=== PATIENT | male | born 1940 | race Caucasian/White ===

== ENCOUNTER 2018-01-30 23:03 | Inpatient (IN) | payer MEDICARE ==
[2018-01-31] MEDS ORDERED: ACETAMINOPHEN 325 MG TAB PO PRN (04:00)
[2018-01-31] MEDS ORDERED: LORazepam 0.5 MG TAB age > 65 yrs PO PRN (04:00)
[2018-01-31] MEDS ORDERED: ALUMINUM/MAGNESIUM/SIMETH 30 ML CUP PO PRN (04:00)
[2018-01-31] MEDS ORDERED: LORazepam 2 MG/ML VIAL - age > 65 yrs IM PRN (04:00)
[2018-01-31] MEDS ORDERED: MAGNESIUM HYDROXIDE SUSP 30 ML CUP PO PRN ×2 (04:00→15:30)
[2018-01-31 06:00] VITALS: BP 137/64; PULSE 50; RESP 18; TEMP 97.6; O2SAT 98
--- NOTE | 2018-01-31 13:18 | HHI.HP ---
Provisional Diagnosis Admission Date Jan 31, 2018 at 01:30 [place] I. Major depressive disorder, recurrent, severe without psychotic features Certification of Person's Competence To Provide Express and Informed Consent I have personally examined Filiberto Veronica , a person being served at [facility] on, Jan 31, 2018 12:43. Express and informed consent means consent voluntarily given in writing, by a competent person, after sufficient explanation and disclosure of the subject matter involved to enable the person to make a knowing and willful decision without any element of force, fraud, deceit, duress, or other form of constraint or coercion. This person is 18 years of age or older, is not now known to be incompetent to consent to treatment with a guardian advocate, and does not have a health care surrogate or proxy currently making medical treatment decisions. I have found this person to be one of the following: [] Competent to provide express and informed consent, as defined above, for voluntary admission to this facility and is competent to provide express and informed consent for treatment. He/she has the consistent capacity to make well reasoned, willful, and knowing decisions concerning his or her medical or mental health treatment. The person fully and consistently understands the purpose of the admission for examination/placement and is fully capable of personally exercising all rights assured under [place]xxx] Incompetent to provide express and informed consent to voluntary admission , and this is incompetent to provide express and informed consent to treatment. The person must be transferred to involuntary status and a petition for a guardian advocate filed with the Circuit Court. [] Refusing to provide express and informed consent to voluntary admission but is competent to provide express and informed consent for treatment. The person must be discharged or transferred to involuntary status. Form shall be completed within 24 hours of a person's arrival at the receiving facility and filed in the clinical record of each person: 1. Admitted on a voluntary basis 2. Permitted to provide express and informed consent to his/her own treatment 3. Allowed to transfer from involuntary to voluntary status 4. Prior to permitting a person to consent to his or her own treatment after having been previously found incompetent to consent to treatment. History of Present Illness Capacity: Lacks Capacity HPI Patient is a 77-year-old man, recently since 6 months ago, domiciled with daughter, unemployed on Social Security benefits and intermediate benefits, with a past psychiatric history of depression, anxiety, unclear previous psychiatric admissions, multiple regular tracks, 3 previous suicide attempts, with a past medical history significant for atrial flutter, history of DVT, hypertension, CAD status post stent placement in 1999, who was brought under Diez act after being found by a nurse trying to place to hang around his neck in attempt to end his life in the context of recent artery with daughter which patient was admitted to the inpatient psychiatry for further evaluation and management. As per Diez act patient was found by nurse trying to place go ahead around his neck and having stated he wanted to end his life in the context of recent argument with daughter. Patient was found sitting in hospital bed noted, cooperative, alert and oriented only to person and year and not to place. Patient states "I put up" anger around my neck" but is unable to recall events prior to this event but did state he was trying to kill himself. Patient states that he is not having suicide ideations "ever since my " but states that has 3 reasons to live us for his children, his grandchildren for himself. Patient reports no changes sleep but did endorse decreased appetite, concentration, and energy along with feeling depressed but denies any suicide ideations today. Patient denies any perceptual disturbances or delusions. Patient noted with psychomotor retardation during interview and cognitive impairment. Past psychiatric history: Denies Past psychiatric history: Previous psychiatric diagnoses of depression and anxiety, unclear if previous psychiatric admissions, 2-4 prior Diez acts as per patient, 3 previous suicide attempts, no history of self-injurious behavior. Patient denies history of abuse. Substance use history: Alcohol use 1-2 glasses of wine per month denying any drug use. Past medical history: Atrial flutter, history of DVT, hypertension, [place] in 2000 status post stent placement. Allergies: Penicillin Social history: Recently 6 months ago, domiciled with daughter, unemployed on social security benefits and intermediate benefits. No history of service, no asked to firearms. Collateral from patient's daughter, Ayde Cancino, states that patient was found trying to put coat silk hanger around his neck, states that he wants to go see Laura (). Reports pt has tried in the past. She believes that the pt has no longer has reason to live. Family history of dementia. Review of Systems Except as stated in HPI: all other systems reviewed are Neg Past Psych History Psychological trauma history Denies Violence risk - others (6 mos) low Violence risk - self (6 mos) Elevated due to previous suicide attempt in the current Substance Abuse History Drugs/Alcohol past 12 months Alcohol use 1-2 glasses of wine per month denying any drug use. Past Family Social History Coded Allergies: Penicillins (Verified Allergy, Unknown, 01/31/18) Current Medications Medications (Trade) Dose Ordered Sig/Idania Route Start Time Stop Time Status Last Admin (Ativan) 0.5 mg Q12H PRN PO 01/31/18 04:00 Future Hold (Ativan Inj) 0.5 mg Q12H PRN IM 01/31/18 04:00 Future Hold (Tylenol) 650 mg Q4H PRN PO 01/31/18 04:00 (Milk Of Magnesia Liq) 30 ml DAILY PRN PO 01/31/18 04:00 (Mag-Al Plus Susp Liq) 30 ml Q6H PRN PO 01/31/18 04:00 Family Psych History Denies Social History Recently 6 months ago, domiciled with daughter, unemployed on social security benefits and intermediate benefits. No history of service, no asked to firearms. Patient's Strengths (min. 2) Verbal and communicative Physical Exam Patient not noted to be in acute distress, no gross motor abnormalities, no tremor or EPS, no psychomotor agitation but is noted to have noted psychomotor retardation. Vital Signs Vital Signs Date Time Temp Pulse Resp B/P (MAP) Pulse Ox O2 Delivery O2 Flow Rate FiO2 01/31/18 06:00 97.6 50 18 137/64 (88) 98 Mental Status Examination Appearance: Disheveled Consciousness: Alert Orientation: Person, Date/Time (Here only) Speech: Slow Language: Adequate Fund of Knowledge: Inadequate Attention and Concentration: Inadequate Memory: Impaired Mood: Other (Depressed) Affect: Blunt Thought Process & Associations: Other ([place]) Thought Content: Thought blocking Hallucination Type: None Delusion Type: None Suicidal Ideation: Yes Suicidal Plan: No Suicidal Intention: Yes Homicidal Ideation: No Homicidal Plan: No Homicidal Intention: No Insight: Poor Judgment: Poor Assessment & Plan Problem List: (1) Major depressive disorder, recurrent, severe w/o psychotic behavior ICD Codes: F33.2 - Major depressive disorder, recurrent severe without psychotic features Assessment & Plan Estimated LOS: 5-7 days. Patient is a 77-year-old man who carries a diagnosis of depression, unclear previous psychiatric admissions, previous Diez acts, 3 previous suicide attempts, was brought in under Diez act after patient placed "anger her neck in attempt to end his life in the context of recent argument with as well as his recently having past 6 months ago which patient was admitted to the inpatient psychiatry for psychiatric stabilization. Patient will be admitted under petition for involuntary hospitalization, second opinion will be requested. Patient's daughter, Ayde Veronica [phone], will be requested to be patient's healthcare surrogate and guardian advocate, contacted over the phone and consented to patient's treatment. Once can medications establish with patient's daughter has a GCS, will plan to start patient on venlafaxine 75 mg p.o. daily for depression, diphenhydramine 25-50 mg p.o. at bedtime as needed insomnia, Lorazepam 0.5 mg every 6 hours as needed anxiety. Hospitalist consult pending for management of chronic medical issues. Collateral formation pending from patient's daughter. Continue to monitor mood and behavior. Discharge planning in progress. Discharge Planning Return back to his residence. Joshua Roy MD Jan 31, 2018 13:18
--- NOTE | 2018-01-31 14:26 | PD.CONS ---
HPI Service [facility] Hospitalists Consult Requested By Psychiatry team Reason for Consult Assist with medical management Primary Care Physician Unknown Diagnoses: History of Present Illness Patient is a 77-year-old male with primary medical history of HTN, [place] with stent placement, GERD, a flutter, DVT, depression who came into the hospital as transferred from [facility] secondary to suicidal attempt. He is now admitted to inpatient psychiatry unit for further evaluation. Consulted for assistance with medical management. Patient seen and examined today. Patient states that he lives at home with his daughter. His recently about 6 months ago. States he has some dementia states he lives in [place] and that he came from another hospital before being transferred to [facility].. Patient states that because his , he attempted to strangle himself with a coat overhead garage door hanger. States he feels the same. States he takes 17 medications that he does not know why he is taking it. Denies being diagnosed with Parkinson's disease or Alzheimer's disease. States mother has Alzheimer's disease, and father at the age of 59 with a heart attack. Reports constipation denies pain and discomfort. Denies SOB/ dyspnea. Denies chest pain, palpitations, headaches, dizziness. Denies fevers, chills, n/v/d. Denies dysuria. Review of Systems Except as stated in HPI: all other systems reviewed are Neg Past Family Social History Allergies: Coded Allergies: Penicillins (Verified Allergy, Unknown, 01/31/18) Past Medical History HTN DE GERD Dementia Depression A flutter DVT Past Surgical History 2 stent placements, 1999 Cholecystectomy Appendectomy Reported Medications Eliquis 2.5 mg twice daily Finasteride 5 mg daily Folic acid 1 mg daily Hydralazine 25 mg 3 times a day Hydrochlorothiazide 12.5 mg daily Losartan 50 mg daily Nitroglycerin 0.4 mg sublingual PRN Pravastatin 40 mg daily Ranitidine 300 mg daily at bedtime Zoloft 100 mg daily Verapamil 120 mg daily Active Ordered Medications Current Medications Medications (Trade) Dose Ordered Sig/Idania Route Start Time Stop Time Status Last Admin (Ativan) 0.5 mg Q12H PRN PO 01/31/18 04:00 Future Hold (Ativan Inj) 0.5 mg Q12H PRN IM 01/31/18 04:00 Future Hold (Tylenol) 650 mg Q4H PRN PO 01/31/18 04:00 (Milk Of Magnesia Liq) 30 ml DAILY PRN PO 01/31/18 04:00 (Mag-Al Plus Susp Liq) 30 ml Q6H PRN PO 01/31/18 04:00 (Benadryl) 50 mg HS PRN PO 01/31/18 13:30 (Effexor Xr) 75 mg DAILY PO 01/31/18 13:30 01/31/18 14:41 Family History Father of a heart attack at age 59 Mother had Alzheimer's disease Social History Patient lives in [place] with daughter Occasional alcohol use, states he "sneaks sometimes" 1-2 drinks a month Former smoker, quit in 1971 Denies illicit drug Physical Exam Vital Signs Vital Signs Date Time Temp Pulse Resp B/P (MAP) Pulse Ox O2 Delivery O2 Flow Rate FiO2 01/31/18 06:00 97.6 50 18 137/64 (88) 98 Physical Exam GENERAL: This is a well-nourished, well-developed patient, in no apparent distress. SKIN: Cool and dry. HEAD: Normocephalic. EYES: Pupils equal round and reactive. Extraocular motions intact. No scleral icterus. No injection or drainage. ENT: Nose without bleeding. Throat without erythema. Uvula midline. Airway patent. NECK: Trachea midline. No JVD or lymphadenopathy. Supple, nontender, no meningeal signs. CARDIOVASCULAR: Regular rate without murmurs, gallops, or rubs. RESPIRATORY: Clear to auscultation. Breath sounds equal bilaterally. No wheezes , rales, or rhonchi. GASTROINTESTINAL: Abdomen soft, non-tender, protuberant. Bowel sounds hypoactive MUSCULOSKELETAL: Extremities without clubbing, cyanosis, or edema. NEUROLOGICAL: Awake and alert. Cranial nerves II through XII intact. Motor and sensory grossly within normal limits. Slow speech. Assessment and Plan Problem List: (1) HTN (hypertension) ICD Code: I10 - Essential (primary) hypertension (2) Depression ICD Code: F32.9 - Major depressive disorder, single episode, unspecified (3) Atrial flutter ICD Code: I48.92 - Unspecified atrial flutter (4) Major depressive disorder, recurrent, severe w/o psychotic behavior ICD Code: F33.2 - Major depressive disorder, recurrent severe without psychotic features Assessment and Plan Patient is a 77-year-old male with primary medical history of HTN, DE with stent placement, GERD, a flutter, DVT, depression who came into the hospital as transferred from [facility] secondary to suicidal attempt. He is now admitted to inpatient psychiatry unit for further evaluation. Consulted for assistance with medical management. Depression Suicidal attempt -Managed by psychiatry team Slow Speech Gen Weakness, unsteady gait -PT eval and treat A flutter History of DVT -Continue home Eliquis 2.5 mg twice daily -Continue verapamil -Check EKG HTN HLD -Continue home medications losartan, pravastatin 40 mg daily -Hold off on hydralazine 3 times daily and hydrochlorothiazide 12.5 mg. Will add on appropriately if BP trend increases. -Monitor BP trend GERD -Continue ranitidine Constipation' -Lactulose 1 dose now -Bowel regimen DVT prop Eliquis Code Status Full code Discussed Condition With Patient, nursing, Torrey Flowers Jan 31, 2018 14:25
[2018-01-31] MEDS: VENLAFAXINE HCL XR 75 MG CAP PO SCH (14:41)
[2018-01-31] MEDS ORDERED: SENNOSIDES 8.6 MG TAB PO PRN (15:30)
[2018-01-31] MEDS ORDERED: BISACODYL 10 MG SUPP RECTAL PRN (15:30)
[2018-01-31] MEDS ORDERED: LACTULOSE SYRUP 20 GM/30 ML CUP PO ONE (15:30)
[2018-01-31] MEDS: PRAVASTATIN SOD 40 MG TAB PO SCH (17:00)
[2018-01-31] MEDS: FINASTERIDE 5 MG TAB PO SCH (17:00)
[2018-01-31] MEDS: FOLIC ACID 1 MG TAB PO SCH (17:00)
[2018-01-31] MEDS: LOSARTAN 50 MG TAB PO SCH (17:00)
[2018-01-31] MEDS: VERAPAMIL HCL 120 MG TAB PO SCH (17:00)
[2018-01-31 17:57] VITALS: BP 151/81; PULSE 60; RESP 16; TEMP 98.3; O2SAT 97
[2018-01-31] MEDS: APIXABAN 2.5 MG TABLET PO SCH (20:53)
[2018-01-31] MEDS: FAMOTIDINE 20 MG TAB PO SCH (20:53)
[2018-01-31] MEDS: diphenhydrAMINE HCL 50 MG CAP PO PRN (20:53)
[2018-01-31] MEDS: DOCUSATE SODIUM 50 MG/SENNA 8.6 MG TAB PO SCH (20:53)
[2018-02-01 05:46] VITALS: BP 141/71; PULSE 60; RESP 16; TEMP 97.4; O2SAT 96
[2018-02-01] MEDS ORDERED: LACTULOSE SYRUP 20 GM/30 ML CUP PO PRN (09:00)
--- NOTE | 2018-02-01 09:15 | EKG ---
Date Performed: 01/31/2018 Time Performed: 15:54:49 PTAGE: 77 years EKG: SINUS BRADYCARDIA BORDERLINE ECG NO PREVIOUS TRACING DOCTOR: Moises Villanueva Interpretating Date/Time 02/01/2018 09:14:44
[2018-02-01] MEDS: VENLAFAXINE HCL XR 75 MG CAP PO SCH (09:22)
[2018-02-01] MEDS: VERAPAMIL HCL 120 MG TAB PO SCH (09:23)
[2018-02-01] MEDS: LOSARTAN 50 MG TAB PO SCH ×2 (09:23→22:06)
[2018-02-01] MEDS: PRAVASTATIN SOD 40 MG TAB PO SCH (09:23)
[2018-02-01] MEDS: APIXABAN 2.5 MG TABLET PO SCH ×2 (09:23→22:06)
[2018-02-01] MEDS: FINASTERIDE 5 MG TAB PO SCH (09:23)
[2018-02-01] MEDS: FAMOTIDINE 20 MG TAB PO SCH ×2 (09:23→22:05)
[2018-02-01] MEDS: DOCUSATE SODIUM 50 MG/SENNA 8.6 MG TAB PO SCH ×2 (09:23→22:05)
[2018-02-01] MEDS: FOLIC ACID 1 MG TAB PO SCH (09:23)
[2018-02-01 09:26] LABS: BASOPHIL % 0.4 % (0.0-2.0); EOSINOPHIL # 0.1 TH/MM3 (0-0.4); EOSINOPHIL % 1.4 % (0.0-4.0); HEMATOCRIT 41.7 % (39.0-51.0); HEMOGLOBIN 14.3 GM/DL (13.0-17.0); LYMPH % 18.6 % (9.0-44.0); LYMPHOCYTE # 1.6 TH/MM3 (1.0-4.8); MEAN CELL VOLUME 98.2 FL (80.0-100.0); MEAN CORPUSCULAR HEMOGLOBIN 33.6 PG (27.0-34.0); MEAN CORPUSCULAR HGB CONC 34.3 % (32.0-36.0); MEAN PLATELET VOLUME 8.4 FL (7.0-11.0); MONO % 8.5 % (0.0-8.0); MONOCYTE # 0.7 TH/MM3 (0-0.9); NEUT % 71.1 % (16.0-70.0); PLATELET COUNT 216 TH/MM3 (150-450); RED BLOOD COUNT 4.25 MIL/MM3 (4.50-5.90); RED CELL DISTRIBUTION WIDTH 13.1 % (11.6-17.2); WHITE BLOOD COUNT 8.5 TH/MM3 (4.0-11.0)
[2018-02-01 09:51] LABS: ALBUMIN 3.9 GM/DL (3.4-5.0); AST (GOT) 18 U/L (15-37); BICARBONATE 28.9 MEQ/L (21.0-32.0); BLOOD UREA NITROGEN 14 MG/DL (7-18); CALCIUM 10.1 MG/DL (8.5-10.1); CHLORIDE 105 MEQ/L (98-107); CREATININE 1.11 MG/DL (0.60-1.30); GLOMERULAR FILTRATION RATE 64 ML/MIN (>89); GLUCOSE,RANDOM 78 MG/DL (74-106); SODIUM (NA) 140 MEQ/L (136-145)
[2018-02-01 09:52] LABS: ALT (GPT) 23 U/L (12-78)
[2018-02-01 10:18] LABS: ALKALINE PHOSPHATASE 57 U/L (45-117); TOTAL BILIRUBIN ADULT 0.7 MG/DL (0.2-1.0); TOTAL PROTEIN 7.2 GM/DL (6.4-8.2)
[2018-02-01 10:21] LABS: FOLATE GREATER THAN 20.0 NG/ML (3.1-17.5)
--- NOTE | 2018-02-01 11:02 | PD.TTN ---
Patient Problems 1. Discharge planning 2. Medication compliance 3. Knowledge deficit 4. Lack of coping skills Progress Toward Goals Provider Present: Dr. Mick Roy Provider Input: Med adjustment, griefing loss of his Psychiatric Counselors Present: FLY BarthW, Jessika Quevedo, [facility], Olu Andrew Jr., [facility], Radha Valdez, [facility], Bibi Lugo, [facility] Psych Therapist Input: 02/01/18: Will go home when stable. Very dependant Group Spec/RT/OT/CASTILLO Present: BULMARO Geronimo, Gee Tariq, OT Group Spec/RT/OT/CASTILLO Input: Ekaterina select groups with Supervision Documentation Scribe: Daria Maguire Feb 01, 2018 11:02
--- NOTE | 2018-02-01 11:45 | PD.PSY.CON ---
Provisional Diagnosis Admission Date Jan 31, 2018 at 01:30 [place] I. Major depressive disorder, recurrent, severe without psychotic features History of Present Illness Service Psychiatry Consult Requested By Psychiatry Reason for Consult Second opinion Primary Care Physician Unknown HPI Patient is a 77-year-old man, recently since 6 months ago, domiciled with daughter, unemployed on Social Security benefits and group home benefits, with a past psychiatric history of depression, anxiety, unclear previous psychiatric admissions, multiple regular tracks, 3 previous suicide attempts, with a past medical history significant for atrial flutter, history of DVT, hypertension, CAD status post stent placement in 1999, who was brought under Diez act after being found by a nurse trying to place to hang around his neck in attempt to end his life in the context of recent artery with daughter which patient was admitted to the inpatient psychiatry for further evaluation and management. As per Ideacentric act patient was found by nurse trying to place go ahead around his neck and having stated he wanted to end his life in the context of recent argument with daughter. Patient was found sitting in hospital bed noted, cooperative, alert and oriented only to person and year and not to place. Patient states "I put up" anger around my neck" but is unable to recall events prior to this event but did state he was trying to kill himself. Patient states that he is not having suicide ideations "ever since my " but states that has 3 reasons to live us for his children, his grandchildren for himself. Patient reports no changes sleep but did endorse decreased appetite, concentration, and energy along with feeling depressed but denies any suicide ideations today. Patient denies any perceptual disturbances or delusions. Patient noted with psychomotor retardation during interview and cognitive impairment. The patient is a 77-year-old man, domiciled with his daughter in [place], unemployed, , retired, with no previous psychiatric history, no previous psychiatric hospitalizations, no suicide attempts, medical history hypertension, DVT, CAD, who was brought to the hospital on the Diez act after being found by a nurse trying to hang himself. Consulted to me for second opinion. On psychiatric evaluation the patient has prominent neurovegetative symptoms of depression, with psychomotor retardation, speech latency, poor sleep and appetite. The patient is fully oriented 3. He says that he tried to kill himself " and just end everything". Patient reports that he has been very depressed, sad, he does not find a reason to live in [place] [facility] [place] anymore. Review of Systems Constitutional: DENIES: Diaphoretic episodes, Fatigue, Fever, Weight gain, Weight loss, Chills, Dizziness, Change in appetite, Night Sweats Endocrine: DENIES: Heat/cold intolerance, Polydipsia, Polyuria, Polyphagia Eyes: DENIES: Blurred vision, Diplopia, Eye inflammation, Eye pain, Vision loss , Photosensitivity, Double Vision Ears, nose, mouth, throat: DENIES: Tinnitus, Hearing loss, Vertigo, Nasal discharge, Oral lesions, Throat pain, Hoarseness, Ear Pain, Running Nose, Epistaxis, Sinus Pain, Toothache, Odynophagia Respiratory: DENIES: Apneas, Cough, Snoring, Wheezing, Hemoptysis, Sputum production, Shortness of breath Cardiovascular: DENIES: Chest pain, Palpitations, Syncope, Dyspnea on Exertion , PND, Lower Extremity Edema, Orthopnea, Claudication Gastrointestinal: DENIES: Abdominal pain, Black stools, Bloody stools, Constipation, Diarrhea, Nausea, Vomiting, Difficulty Swallowing, Anorexia Genitourinary: DENIES: Sexual dysfunction, Urinary frequency, Urinary incontinence, Urgency, Hematuria, Dysuria, Nocturia, Penile Discharge, Testicular Pain, Testicular Swelling Musculoskeletal: DENIES: Joint pain, Muscle aches, Stiffness, Joint Swelling, Back pain, Neck pain Integumentary: DENIES: Abnormal pigmentation, Nail changes, Pruritus, Rash Hematologic/lymphatic: DENIES: Bruising, Lymphadenopathy Immunologic/allergic: DENIES: Eczema, Urticaria Neurologic: DENIES: Abnormal gait, Headache, Localized weakness, Paresthesias, Seizures, Speech Problems, Tremor, Poor Balance Psychiatric: COMPLAINS OF: Depression, Suicidal Ideation, DENIES: Anxiety, Confusion, Mood changes, Hallucinations, Agitation, Homicidal Ideation, Delusions Past Family Social History Coded Allergies: Penicillins (Verified Allergy, Unknown, 01/31/18) Current Medications Medications (Trade) Dose Ordered Sig/Idania Route Start Time Stop Time Status Last Admin (Ativan) 0.5 mg Q12H PRN PO 01/31/18 04:00 Future Hold (Ativan Inj) 0.5 mg Q12H PRN IM 01/31/18 04:00 Future Hold (Tylenol) 650 mg Q4H PRN PO 01/31/18 04:00 (Mag-Al Plus Susp Liq) 30 ml Q6H PRN PO 01/31/18 04:00 (Benadryl) 50 mg HS PRN PO 01/31/18 13:30 01/31/18 20:53 (Effexor Xr) 75 mg DAILY PO 01/31/18 13:30 02/01/18 09:22 (Eliquis) 2.5 mg BID PO 01/31/18 21:00 02/01/18 09:23 (Pravachol) 40 mg DAILY PO 01/31/18 15:30 02/01/18 09:23 (Isoptin) 120 mg DAILY PO 01/31/18 15:30 02/01/18 09:23 (Proscar) 5 mg DAILY PO 01/31/18 15:30 02/01/18 09:23 (Cozaar) 50 mg DAILY PO 01/31/18 15:30 02/01/18 09:23 (Folate) 1 mg DAILY PO 01/31/18 15:30 02/01/18 09:23 (Ailyn-Colace) 1 tab BID PO 01/31/18 21:00 02/01/18 09:23 (Milk Of Magnesia Liq) 30 ml Q12H PRN PO 01/31/18 15:30 (Senokot) 17.2 mg Q12H PRN PO 01/31/18 15:30 (Dulcolax Supp) 10 mg DAILY PRN RECTAL 01/31/18 15:30 (Lactulose Liq) 30 ml DAILY PRN PO 02/01/18 09:00 (Pepcid) 20 mg BID PO 01/31/18 21:00 02/01/18 09:23 Family Psych History No family psychiatric history Social History Patient was born in [place], he lives in [place] with his daughter, , retired, 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 2) Verbal and communicative Physical Exam Vital Signs Vital Signs Date Time Temp Pulse Resp B/P (MAP) Pulse Ox O2 Delivery O2 Flow Rate FiO2 02/01/18 05:46 97.4 60 16 141/71 (94) 96 I/O 02/01/18 02/01/18 02/02/18 08:00 16:00 00:00 Intake Total 0 ml Balance 0 ml Lab Results Test 02/01/18 09:05 White Blood Count 8.5 TH/MM3 Red Blood Count 4.25 MIL/MM3 Hemoglobin 14.3 GM/DL Hematocrit 41.7 % Mean Corpuscular Volume 98.2 FL Mean Corpuscular Hemoglobin 33.6 PG Mean Corpuscular Hemoglobin Concent 34.3 % Red Cell Distribution Width 13.1 % Platelet Count 216 TH/MM3 Mean Platelet Volume 8.4 FL Neutrophils (%) (Auto) 71.1 % Lymphocytes (%) (Auto) 18.6 % Monocytes (%) (Auto) 8.5 % Eosinophils (%) (Auto) 1.4 % Basophils (%) (Auto) 0.4 % Neutrophils # (Auto) 6.0 TH/MM3 Lymphocytes # (Auto) 1.6 TH/MM3 Monocytes # (Auto) 0.7 TH/MM3 Eosinophils # (Auto) 0.1 TH/MM3 Basophils # (Auto) 0.0 TH/MM3 CBC Comment DIFF FINAL Differential Comment Blood Urea Nitrogen 14 MG/DL Creatinine 1.11 MG/DL Random Glucose 78 MG/DL Total Protein 7.2 GM/DL Albumin 3.9 GM/DL Calcium Level 10.1 MG/DL Alkaline Phosphatase 57 U/L Aspartate Amino Transf (AST/SGOT) 18 U/L Alanine Aminotransferase (ALT/SGPT) 23 U/L Total Bilirubin 0.7 MG/DL Sodium Level 140 MEQ/L Potassium Level 3.6 MEQ/L Chloride Level 105 MEQ/L Carbon Dioxide Level 28.9 MEQ/L Anion Gap 6 MEQ/L Estimat Glomerular Filtration Rate 64 ML/MIN Vitamin B12 Level 616 PG/ML 25-Hydroxy Vitamin D Total 32.1 ng/ML Folate GREATER THAN 20.0 NG/ML Thyroid Stimulating Hormone 3rd Gen 3.420 uIU/ML Mental Status Examination Appearance: Disheveled Consciousness: Alert Orientation: Person, Date/Time (Here only) Speech: Slow Language: Adequate Fund of Knowledge: Inadequate Attention and Concentration: Inadequate Memory: Impaired Mood: Other (Depressed) Affect: Blunt Thought Process & Associations: Other ([place]) Thought Content: Thought blocking Hallucination Type: None Delusion Type: None Suicidal Ideation: Yes Suicidal Plan: No Suicidal Intention: Yes Homicidal Ideation: No Homicidal Plan: No Homicidal Intention: No Insight: Poor Judgment: Poor Assessment & Plan Problem List: (1) Major depressive disorder, recurrent, severe w/o psychotic behavior ICD Codes: F33.2 - Major depressive disorder, recurrent severe without psychotic features Assessment & Plan: I have seen and examined this patient, reviewed documentation, I agree and concur with Dr. Roy assessment and plan. Assessment & Plan Estimated LOS: Michael Gallo MD Feb 01, 2018 11:45
--- NOTE | 2018-02-01 15:33 | HHI.PR ---
Subjective Remarks Follow-up visit constipation, HTN, GERD, a flutter, DVT. Patient seen and examined today. States he is afraid that he is going to be kicked out. Apparently 2500 unit has been closed and patient has been moved to 2600 unit right and patient's with dementia got confused with room movement. Denies pain and discomfort. Denies SOB/ dyspnea. Denies chest pain, palpitations, headaches, dizziness. Denies fevers, chills, n/v/d. Denies dysuria. Objective Vitals Vital Signs Date Time Temp Pulse Resp B/P (MAP) Pulse Ox O2 Delivery O2 Flow Rate FiO2 02/01/18 05:46 97.4 60 16 141/71 (94) 96 01/31/18 17:57 98.3 60 16 151/81 (104) 97 I/O 01/31/18 01/31/18 01/31/18 02/01/18 02/01/18 02/01/18 07:00 15:00 23:00 07:00 15:00 23:00 Intake Total 240 ml 240 ml 0 ml Balance 240 ml 240 ml 0 ml Intake Oral 240 ml 240 ml 0 ml # Voids 1 Result Diagram: 02/01/18 0902/01/18 09 Objective Remarks GENERAL: This is a well-nourished, well-developed patient, in no apparent distress. SKIN: Cool and dry. HEAD: Normocephalic. EYES: Pupils equal round and reactive. Extraocular motions intact. No scleral icterus. No injection or drainage. ENT: Nose without bleeding. Throat without erythema. Uvula midline. Airway patent. NECK: Trachea midline. No JVD or lymphadenopathy. Supple, nontender, no meningeal signs. CARDIOVASCULAR: Regular rate without murmurs, gallops, or rubs. RESPIRATORY: Clear to auscultation. Breath sounds equal bilaterally. No wheezes , rales, or rhonchi. GASTROINTESTINAL: Abdomen soft, non-tender, protuberant. Bowel sounds hypoactive MUSCULOSKELETAL: Extremities without clubbing, cyanosis, or edema. NEUROLOGICAL: Awake and alert. Cranial nerves II through XII intact. Motor and sensory grossly within normal limits. Slow speech. A/P Problem List: (1) HTN (hypertension) ICD Code: I10 - Essential (primary) hypertension (2) Depression ICD Code: F32.9 - Major depressive disorder, single episode, unspecified (3) Atrial flutter ICD Code: I48.92 - Unspecified atrial flutter (4) Major depressive disorder, recurrent, severe w/o psychotic behavior ICD Code: F33.2 - Major depressive disorder, recurrent severe without psychotic features Assessment and Plan Patient is a 77-year-old male with primary medical history of HTN, [place] with stent placement, GERD, a flutter, DVT, depression who came into the hospital as transferred from [facility] secondary to suicidal attempt. He is now admitted to inpatient psychiatry unit for further evaluation. Consulted for assistance with medical management. Depression Suicidal attempt -Managed by psychiatry team Slow Speech Gen Weakness, unsteady gait -PT eval and treat A flutter History of DVT -Continue home Eliquis 2.5 mg twice daily -Continue verapamil - EKG shows sinus bradycardia HTN HLD -Continue home medications [id number], pravastatin 40 mg daily. -Elevated BP will increase losartan to 50 mg twice daily, place patient on hydralazine 3 times a day. -Hold hydrochlorothiazide 12.5 mg. Will add on appropriately if BP trend increases. -Monitor BP trend GERD -Continue ranitidine Constipation -Bowel regimen -States he had a good bowel movement yesterday DVT prop Torrey Carlson Feb 01, 2018 15:33
--- NOTE | 2018-02-01 16:37 | HHI.PYPN ---
Subjective Remarks Patient seen for follow-up, chart reviewed. Discussion with nursing staff reported the patient has been visible on the unit, cooperative and compliant with treatment. Patient was found ambulating on the unit noted B, cooperative. Patient states that he is "better this week" and stated that he would like to stay in the hospital until he feels better. Patient states he continues to feel depressed and worried about his daughter and mentions relation discord between his children. Patient states that he feels better when around people other continues to have depressed mood due to missing his who had recently. He reports sleeping okay, denies any difficulty with eating or drinking. Patient completed be noted to have psychomotor retardation during interview but appears to be slightly lessening now. Review of Systems Except as stated in HPI: all other systems reviewed are Neg Mental Status Examination Appearance: Appropriate Consciousness: Alert Orientation: Person, Date/Time (Here only) Speech: Slow Language: Adequate Fund of Knowledge: Inadequate Attention and Concentration: Inadequate Memory: Impaired Mood: Other (Depressed) Affect: Blunt Thought Process & Associations: Other ([place]) Thought Content: Thought blocking (Lessening) Hallucination Type: None Delusion Type: None Suicidal Ideation: Yes (Denies today) Suicidal Plan: No Suicidal Intention: No Homicidal Ideation: No Homicidal Plan: No Homicidal Intention: No Insight: Poor Judgment: Poor Results Labs Labs reviewed Test 02/01/18 09:05 White Blood Count 8.5 TH/MM3 Red Blood Count 4.25 MIL/MM3 Hemoglobin 14.3 GM/DL Hematocrit 41.7 % Mean Corpuscular Volume 98.2 FL Mean Corpuscular Hemoglobin 33.6 PG Mean Corpuscular Hemoglobin Concent 34.3 % Red Cell Distribution Width 13.1 % Platelet Count 216 TH/MM3 Mean Platelet Volume 8.4 FL Neutrophils (%) (Auto) 71.1 % Lymphocytes (%) (Auto) 18.6 % Monocytes (%) (Auto) 8.5 % Eosinophils (%) (Auto) 1.4 % Basophils (%) (Auto) 0.4 % Neutrophils # (Auto) 6.0 TH/MM3 Lymphocytes # (Auto) 1.6 TH/MM3 Monocytes # (Auto) 0.7 TH/MM3 Eosinophils # (Auto) 0.1 TH/MM3 Basophils # (Auto) 0.0 TH/MM3 CBC Comment DIFF FINAL Differential Comment Blood Urea Nitrogen 14 MG/DL Creatinine 1.11 MG/DL Random Glucose 78 MG/DL Total Protein 7.2 GM/DL Albumin 3.9 GM/DL Calcium Level 10.1 MG/DL Alkaline Phosphatase 57 U/L Aspartate Amino Transf (AST/SGOT) 18 U/L Alanine Aminotransferase (ALT/SGPT) 23 U/L Total Bilirubin 0.7 MG/DL Sodium Level 140 MEQ/L Potassium Level 3.6 MEQ/L Chloride Level 105 MEQ/L Carbon Dioxide Level 28.9 MEQ/L Anion Gap 6 MEQ/L Estimat Glomerular Filtration Rate 64 ML/MIN Vitamin B12 Level 616 PG/ML 25-Hydroxy Vitamin D Total 32.1 ng/ML Folate GREATER THAN 20.0 NG/ML Thyroid Stimulating Hormone 3rd Gen 3.420 uIU/ML Vitals/IOs Vital Signs Date Time Temp Pulse Resp B/P (MAP) Pulse Ox O2 Delivery O2 Flow Rate FiO2 02/01/18 05:46 97.4 60 16 141/71 (94) 96 Intake and Output 02/01/18 02/01/18 02/02/18 08:00 16:00 00:00 Intake Total 0 ml Balance 0 ml Assessment & Plan Problem List: (1) Major depressive disorder, recurrent, severe w/o psychotic behavior ICD Codes: F33.2 - Major depressive disorder, recurrent severe without psychotic features Assessment & Plan Patient this time continues to report feeling depressed, continues be noted to have psychomotor retardation, although denies suicide ideation continues to appear dysphoric. Patient noted to have more interaction with interview today. We will continue current treatment regimen for now with possible increase in antidepressant patient continues to have partial response. Continue to monitor mood and behavior. Discharge planning in progress. Justification for Cont. Inpt. At risk of further decompensation at lower level of care Joshua Roy MD Feb 01, 2018 16:37
[2018-02-01] MEDS ORDERED: cloNIDine HCL 0.1 MG TAB PO PRN (17:15)
[2018-02-01] MEDS ORDERED: hydrALAZINE HCL 25 MG TAB PO ONE (18:15)
[2018-02-01 18:21] VITALS: BP 181/90; PULSE 54; RESP 16; TEMP 97.8; O2SAT 97
[2018-02-01] MEDS: hydrALAZINE HCL 25 MG TAB PO SCH (22:05)
[2018-02-02 05:22] VITALS: BP 174/79; PULSE 55; RESP 16; TEMP 97.9; O2SAT 98
[2018-02-02] MEDS: hydrALAZINE HCL 25 MG TAB PO SCH ×3 (07:05→21:16)
[2018-02-02 09:20] VITALS: BP_SYST 124; BP_SYST 126; BP_DIAS 61; BP_DIAS 62; PULSE 63
[2018-02-02] MEDS: FINASTERIDE 5 MG TAB PO SCH (09:21)
[2018-02-02] MEDS: FOLIC ACID 1 MG TAB PO SCH (09:21)
[2018-02-02] MEDS: DOCUSATE SODIUM 50 MG/SENNA 8.6 MG TAB PO SCH ×2 (09:22→20:35)
[2018-02-02] MEDS: VERAPAMIL HCL 120 MG TAB PO SCH (09:22)
[2018-02-02] MEDS: VENLAFAXINE HCL XR 75 MG CAP PO SCH (09:22)
[2018-02-02] MEDS: FAMOTIDINE 20 MG TAB PO SCH ×2 (09:22→20:35)
[2018-02-02] MEDS: PRAVASTATIN SOD 40 MG TAB PO SCH (09:23)
[2018-02-02] MEDS: LOSARTAN 50 MG TAB PO SCH ×2 (09:23→20:35)
[2018-02-02] MEDS: APIXABAN 2.5 MG TABLET PO SCH ×2 (09:23→20:35)
--- NOTE | 2018-02-02 14:37 | HHI.PR ---
Subjective Remarks Follow-up visit constipation, HTN, GERD, a flutter, DVT. Patient seen and examined today. Patient adamant that he speaks to me regarding what is going on with his son and his daughter. Continues with his son and daughter stories including their disagreements. Patient continues to do very focus on his family and his previous work. Denies pain and discomfort. Denies SOB/ dyspnea. Denies chest pain, palpitations, headaches, dizziness. Denies fevers, chills, n/v/d. Denies dysuria. Objective Vitals Vital Signs Date Time Temp Pulse Resp B/P (MAP) Pulse Ox O2 Delivery O2 Flow Rate FiO2 02/02/18 09:20 63 124/62 (82) 126/61 (82) 02/02/18 05:22 97.9 55 16 174/79 (110) 98 02/01/18 18:21 97.8 54 16 181/90 (120) 97 I/O 02/01/18 02/01/18 02/01/18 02/02/18 02/02/18 02/02/18 07:00 15:00 23:00 07:00 15:00 23:00 Intake Total 0 ml 0 ml Balance 0 ml 0 ml Intake Oral 0 ml 0 ml # Voids 1 1 Result Diagram: 02/01/1890402/01/18904 Objective Remarks GENERAL: This is a well-nourished, well-developed patient, in no apparent distress. SKIN: Cool and dry. HEAD: Normocephalic. EYES: Pupils equal round and reactive. Extraocular motions intact. No scleral icterus. No injection or drainage. ENT: Nose without bleeding. Throat without erythema. Uvula midline. Airway patent. NECK: Trachea midline. No JVD or lymphadenopathy. Supple, nontender, no meningeal signs. CARDIOVASCULAR: Regular rate without murmurs, gallops, or rubs. RESPIRATORY: Clear to auscultation. Breath sounds equal bilaterally. No wheezes , rales, or rhonchi. GASTROINTESTINAL: Abdomen soft, non-tender, protuberant. Bowel sounds hypoactive MUSCULOSKELETAL: Extremities without clubbing, cyanosis, or edema. NEUROLOGICAL: Awake and alert. Cranial nerves II through XII intact. Motor and sensory grossly within normal limits. Slow speech. A/P Problem List: (1) HTN (hypertension) ICD Code: I10 - Essential (primary) hypertension (2) Depression ICD Code: F32.9 - Major depressive disorder, single episode, unspecified (3) Atrial flutter ICD Code: I48.92 - Unspecified atrial flutter (4) Major depressive disorder, recurrent, severe w/o psychotic behavior ICD Code: F33.2 - Major depressive disorder, recurrent severe without psychotic features Assessment and Plan Patient is a 77-year-old male with primary medical history of HTN, [place] with stent placement, GERD, a flutter, DVT, depression who came into the hospital as transferred from [facility] secondary to suicidal attempt. He is now admitted to inpatient psychiatry unit for further evaluation. Consulted for assistance with medical management. Depression Suicidal attempt -Managed by psychiatry team Slow Speech Gen Weakness, unsteady gait -PT eval and treat. No PT recommendation in the outpatient setting A flutter History of DVT -Continue home Eliquis 2.5 mg twice daily -Continue verapamil - EKG shows sinus bradycardia HTN HLD -Continue home medications [id number], pravastatin 40 mg daily. -Elevated BP will increase losartan to 50 mg twice daily, place patient on hydralazine 3 times a day. -Hold hydrochlorothiazide 12.5 mg. Will add on appropriately if BP trend increases. -Monitor BP trend -Improving BP GERD -Continue ranitidine Constipation -Bowel regimen DVT prop Torrey Carlson Feb 02, 2018 14:37
[2018-02-02 18:24] VITALS: BP 141/71; PULSE 55; RESP 16; TEMP 97.4; O2SAT 97
[2018-02-02] MEDS: diphenhydrAMINE HCL 50 MG CAP PO PRN (20:35)
[2018-02-03] MEDS: hydrALAZINE HCL 25 MG TAB PO SCH ×3 (06:00→20:18)
[2018-02-03 06:10] VITALS: BP 176/87; PULSE 56; RESP 19; TEMP 98.3; O2SAT 97
--- NOTE | 2018-02-03 08:02 | HHI.PYPN ---
Subjective Remarks Patient seen for follow, chart reviewed. Discussion nursing staff reported the patient we will be slightly less flat, visible on the unit, with limited interaction with staff. Patient was found lying hospital bed noted B, cooperative. Patient states that he was worried about the relation between his son and his daughter which he also reports was 1 of the major stressors that prompted attempts to try to end his life. Patient states that he continues to feel depressed but continues to feel that it is improving. Patient states "I do not want to have to deal with them" referring to his children. Patient denies any suicide ideations today. Patient states that he wanted to kill himself when his children started to "bang her heads". Patient noted to be slightly more animated today with less psychomotor retardation. Review of Systems Except as stated in HPI: all other systems reviewed are Neg Mental Status Examination Appearance: Appropriate Consciousness: Alert Orientation: Person, Date/Time (Here only) Speech: Slow Language: Adequate Fund of Knowledge: Inadequate Attention and Concentration: Inadequate Memory: Impaired Mood: Other (Depressed) Affect: Blunt Thought Process & Associations: Other ([place]) Thought Content: Thought blocking (Lessening) Hallucination Type: None Delusion Type: None Suicidal Ideation: Yes (Denies today) Suicidal Plan: No Suicidal Intention: No Homicidal Ideation: No Homicidal Plan: No Homicidal Intention: No Insight: Poor Judgment: Poor Results Vitals/IOs Vital Signs Date Time Temp Pulse Resp B/P (MAP) Pulse Ox O2 Delivery O2 Flow Rate FiO2 02/03/18 06:10 98.3 56 19 176/87 (116) 97 Intake and Output 02/03/18 02/03/18 02/04/18 08:00 16:00 00:00 Intake Total 0 ml Balance 0 ml Assessment & Plan Problem List: (1) Major depressive disorder, recurrent, severe w/o psychotic behavior ICD Codes: F33.2 - Major depressive disorder, recurrent severe without psychotic features Assessment & Plan Patient at this time noted to have less psychomotor retardation, noted to be slightly less dysphoric, more engaging interview today. Patient appears to be improving on current regimen. We will continue current treatment. We will attempt to contact patient's daughter whom he lives with to come and assess patient's baseline as well as to have her participate in discharge planning. We will continue to monitor mood and behavior. Continue to encourage patient to participate in groups and activities on the unit. Discharge planning in progress. Justification for Cont. Inpt. At risk of further decompensation a lower level of care. Joshua Roy MD Feb 03, 2018 08:02
[2018-02-03] MEDS: PRAVASTATIN SOD 40 MG TAB PO SCH (08:45)
[2018-02-03] MEDS: LOSARTAN 50 MG TAB PO SCH ×2 (08:46→20:17)
[2018-02-03] MEDS: VENLAFAXINE HCL XR 75 MG CAP PO SCH (08:46)
[2018-02-03] MEDS: DOCUSATE SODIUM 50 MG/SENNA 8.6 MG TAB PO SCH ×2 (08:46→20:18)
[2018-02-03] MEDS: VERAPAMIL HCL 120 MG TAB PO SCH (08:46)
[2018-02-03] MEDS: FAMOTIDINE 20 MG TAB PO SCH ×2 (08:47→20:18)
[2018-02-03] MEDS: APIXABAN 2.5 MG TABLET PO SCH ×2 (08:47→20:17)
[2018-02-03] MEDS: FOLIC ACID 1 MG TAB PO SCH (08:47)
[2018-02-03] MEDS: FINASTERIDE 5 MG TAB PO SCH (08:47)
[2018-02-03 13:33] VITALS: BP_SYST 176; PULSE 65
[2018-02-03] MEDS: LISINOPRIL 20 MG TAB PO SCH (14:15)
--- NOTE | 2018-02-03 14:24 | HHI.PR ---
Subjective Remarks Follow-up visit constipation, HTN, GERD, A flutter, DVT. Patient seen and examined today. Denies pain and discomfort. Denies SOB/ dyspnea. Denies chest pain, palpitations, headaches, dizziness. Denies fevers, chills, n/v/d. Denies dysuria. Appears depressed. Objective Vitals Vital Signs Date Time Temp Pulse Resp B/P (MAP) Pulse Ox O2 Delivery O2 Flow Rate FiO2 02/03/18 13:33 65 176/ 02/03/18 06:10 98.3 56 19 176/87 (116) 97 02/02/18 18:24 97.4 55 16 141/71 (94) 97 I/O 02/02/18 02/02/18 02/02/18 02/03/18 02/03/18 02/03/18 07:00 15:00 23:00 07:00 15:00 23:00 Intake Total 0 ml 1200 ml 0 ml 720 ml Balance 0 ml 1200 ml 0 ml 720 ml Intake Oral 0 ml 1200 ml 0 ml 720 ml # Voids 1 1 0 Result Diagram: 02/01/1890402/01/18904 Objective Remarks GENERAL: This is a well-nourished, well-developed patient, in no apparent distress. SKIN: Cool and dry. HEAD: Normocephalic. EYES: Pupils equal round and reactive. Extraocular motions intact. No scleral icterus. No injection or drainage. ENT: Nose without bleeding. Throat without erythema. Uvula midline. Airway patent. NECK: Trachea midline. CARDIOVASCULAR: Regular rate without murmurs, gallops, or rubs. RESPIRATORY: Clear to auscultation. Breath sounds equal bilaterally. No wheezes , rales, or rhonchi. GASTROINTESTINAL: Abdomen soft, non-tender, protuberant. Bowel sounds hypoactive MUSCULOSKELETAL: Extremities without clubbing, cyanosis, or edema. NEUROLOGICAL: Awake and alert. Flat affect. Oriented to place, person motor and sensory grossly within normal limits. Slow speech. A/P Problem List: (1) HTN (hypertension) ICD Code: I10 - Essential (primary) hypertension (2) Depression ICD Code: F32.9 - Major depressive disorder, single episode, unspecified (3) Atrial flutter ICD Code: I48.92 - Unspecified atrial flutter (4) Major depressive disorder, recurrent, severe w/o psychotic behavior ICD Code: F33.2 - Major depressive disorder, recurrent severe without psychotic features Assessment and Plan Patient is a 77-year-old male with primary medical history of HTN, [place] with stent placement, GERD, a flutter, DVT, depression who came into the hospital as transferred from [facility] secondary to suicidal attempt. He is now admitted to inpatient psychiatry unit for further evaluation. Consulted for assistance with medical management. Depression Suicidal attempt -Managed by psychiatry team Slow Speech Gen Weakness, unsteady gait -PT eval and treat. No PT recommendation in the outpatient setting A flutter History of DVT -Continue home Eliquis 2.5 mg twice daily -Continue verapamil - EKG shows sinus bradycardia HTN HLD -Continue home medications [id number], pravastatin 40 mg daily. -Losartan to 50 mg twice daily, Hydralazine 3 times a day, add lisinopril 20mg daily -Hold hydrochlorothiazide 12.5 mg. -Monitor BP trend -Hydralazine has not been given since yesterday. Will continue to readjust medication. GERD -Continue ranitidine Constipation -Bowel regimen DVT prop Eliquis Torrey Carreon Feb 03, 2018 14:24
[2018-02-03 18:00] VITALS: BP 168/84; PULSE 69; RESP 18; TEMP 98.8; O2SAT 96
--- NOTE | 2018-02-03 18:13 | HHI.PYPN ---
Subjective Remarks Patient seen for follow, chart reviewed. Discussion nursing staff reported the patient has been continued to be noted to be depressed, flat affect and his son had communicated with patient today, denying suicide ideations. Patient was found sitting hospital bed noted become cooperative. Patient mentions that he continues to be worried about his children fighting with each other continues report feeling depressed but states that his improving denying any suicide ideations at this time. Patient states that he is not sure how he will feel when he returns back home as he has not been able to come in contact with his daughter whom he lives with. Patient denies any active suicide ideations but continues report. Dysphoric with continued psychomotor agitations but appears to be lessening. Review of Systems Except as stated in HPI: all other systems reviewed are Neg Mental Status Examination Appearance: Appropriate Consciousness: Alert Orientation: Person, Date/Time (Here only) Speech: Slow Language: Adequate Fund of Knowledge: Inadequate Attention and Concentration: Inadequate Memory: Impaired Mood: Sad, Other (Depressed) Affect: Blunt Thought Process & Associations: Other ([place]) Thought Content: Thought blocking (Lessening) Hallucination Type: None Delusion Type: None Suicidal Ideation: Yes (Denies today) Suicidal Plan: No Suicidal Intention: No Homicidal Ideation: No Homicidal Plan: No Homicidal Intention: No Insight: Poor Judgment: Poor Results Vitals/IOs Vital Signs Date Time Temp Pulse Resp B/P (MAP) Pulse Ox O2 Delivery O2 Flow Rate FiO2 02/03/18 13:33 65 176/ 02/03/18 06:10 98.3 19 97 Intake and Output 02/03/18 02/03/18 02/04/18 08:00 16:00 00:00 Intake Total 480 ml 960 ml 240 ml Balance 480 ml 960 ml 240 ml Assessment & Plan Problem List: (1) Major depressive disorder, recurrent, severe w/o psychotic behavior ICD Codes: F33.2 - Major depressive disorder, recurrent severe without psychotic features Assessment & Plan Patient this time continues to endorse feeling depressed but stated that his becoming less and denying any suicide ideations at this time. We will increase Effexor to 150 mg p.o. daily for depression, continue to monitor mood and behavior. Staff to assist patient to communicate with patient's daughter over the phone. Discharge planning in progress. Justification for Cont. Inpt. At risk for further decompensation if at lower level of care Kirill,Joshua Bonilla MD Feb 03, 2018 18:13
[2018-02-04] MEDS: hydrALAZINE HCL 25 MG TAB PO SCH ×3 (05:23→20:45)
[2018-02-04 06:07] VITALS: BP 165/79; PULSE 55; RESP 15; TEMP 97.7; O2SAT 97
[2018-02-04] MEDS: FOLIC ACID 1 MG TAB PO SCH (08:39)
[2018-02-04] MEDS: VERAPAMIL HCL 120 MG TAB PO SCH (08:40)
[2018-02-04] MEDS: FAMOTIDINE 20 MG TAB PO SCH ×2 (08:40→20:32)
[2018-02-04] MEDS: LISINOPRIL 20 MG TAB PO SCH (08:40)
[2018-02-04] MEDS: APIXABAN 2.5 MG TABLET PO SCH ×2 (08:40→20:32)
[2018-02-04] MEDS: FINASTERIDE 5 MG TAB PO SCH (08:40)
[2018-02-04] MEDS: LOSARTAN 50 MG TAB PO SCH ×2 (08:40→20:32)
[2018-02-04] MEDS: PRAVASTATIN SOD 40 MG TAB PO SCH (08:40)
[2018-02-04] MEDS: DOCUSATE SODIUM 50 MG/SENNA 8.6 MG TAB PO SCH ×2 (08:40→20:33)
[2018-02-04] MEDS: VENLAFAXINE HCL XR 75 MG CAP PO SCH (09:00)
--- NOTE | 2018-02-04 09:15 | HHI.PYPN ---
Subjective Remarks Chart reviewed. Discuss patient with nursing staff. Patient slept well and has a good appetite. Patient was in the common area visiting with another patient. He is cooperative and states that he is feeling alot better and believes that the Effexor is helping. Mental Status Examination Appearance: Appropriate Consciousness: Alert Orientation: Person, Date/Time (Here only) Speech: Slow Language: Adequate Fund of Knowledge: Inadequate Attention and Concentration: Inadequate Memory: Impaired Mood: Good, Other (Depressed) Affect: Euthymic Thought Process & Associations: Other ([place]) Thought Content: Thought blocking (Lessening) Hallucination Type: None Delusion Type: None Suicidal Ideation: Yes (Denies today) Suicidal Plan: No Suicidal Intention: No Homicidal Ideation: No Homicidal Plan: No Homicidal Intention: No Insight: Poor Judgment: Poor Results Vitals/IOs Vital Signs Date Time Temp Pulse Resp B/P (MAP) Pulse Ox O2 Delivery O2 Flow Rate FiO2 02/04/18 06:07 97.7 55 15 165/79 (107) 97 Intake and Output 02/04/18 02/04/18 02/05/18 08:00 16:00 00:00 Intake Total 0 ml Balance 0 ml Assessment & Plan Problem List: (1) Major depressive disorder, recurrent, severe w/o psychotic behavior ICD Codes: F33.2 - Major depressive disorder, recurrent severe without psychotic features Assessment & Plan: Will continue current treatment plan. Discharge planning in progress. Assessment & Plan Estimated LOS: days Justification for Cont. Inpt. Moving patient to a lower level of care may lead to decompensation. Yaima Coley Feb 04, 2018 09:15
--- NOTE | 2018-02-04 13:05 | HHI.PR ---
Subjective Remarks Follow-up visit constipation, HTN, GERD, A flutter, DVT. Patient is seen and examined in the. He denies any headaches, dizziness, lightheadedness, visual changes, chest pain, palpitations, shortness of breath, cough or leg swelling. Discussed with patient his elevated blood pressure and he reports "you are looking out for your pocket" discussed with nurse who does not report any acute concerns. Objective Vitals Vital Signs Date Time Temp Pulse Resp B/P (MAP) Pulse Ox O2 Delivery O2 Flow Rate FiO2 02/04/18 06:07 97.7 55 15 165/79 (107) 97 02/03/18 18:00 98.8 69 18 168/84 (112) 96 02/03/18 13:33 65 176/ I/O 02/03/18 02/03/18 02/03/18 02/04/18 02/04/18 02/04/18 07:00 15:00 23:00 07:00 15:00 23:00 Intake Total 0 ml 1440 ml 480 ml 240 ml Balance 0 ml 1440 ml 480 ml 240 ml Intake Oral 0 ml 1440 ml 480 ml 240 ml # Voids 0 1 1 Result Diagram: 02/01/1890402/01/18904 Objective Remarks GENERAL: This is a well-nourished, well-developed patient, in no apparent distress. SKIN: Cool and dry. HEAD: Normocephalic. EYES: Pupils equal round and reactive. No scleral icterus. No injection or drainage. ENT: Nose without bleeding. Airway patent. NECK: Trachea midline. CARDIOVASCULAR: Regular rate without murmurs, gallops, or rubs. RESPIRATORY: Clear to auscultation. Breath sounds equal bilaterally. No wheezes , rales, or rhonchi. GASTROINTESTINAL: Abdomen soft, non-tender, protuberant. Bowel sounds hypoactive MUSCULOSKELETAL: Extremities without clubbing, cyanosis, or edema. NEUROLOGICAL: Awake and alert. Flat affect. Oriented to place, person motor and sensory grossly within normal limits. Slow speech. A/P Problem List: (1) HTN (hypertension) ICD Code: I10 - Essential (primary) hypertension (2) Depression ICD Code: F32.9 - Major depressive disorder, single episode, unspecified (3) Atrial flutter ICD Code: I48.92 - Unspecified atrial flutter (4) Major depressive disorder, recurrent, severe w/o psychotic behavior ICD Code: F33.2 - Major depressive disorder, recurrent severe without psychotic features Assessment and Plan Patient is a 77-year-old male with primary medical history of HTN, [place] with stent placement, GERD, a flutter, DVT, depression who came into the hospital as transferred from [facility] secondary to suicidal attempt. He is now admitted to inpatient psychiatry unit for further evaluation. Consulted for assistance with medical management. Depression Suicidal attempt -Managed by psychiatry team Slow Speech Gen Weakness, unsteady gait -PT eval and treat. No PT recommendation in the outpatient setting A flutter History of DVT -Continue home Eliquis 2.5 mg twice daily -Continue verapamil - EKG shows sinus bradycardia HTN HLD -pravastatin 40 mg daily. -Losartan to 50 mg twice daily, Hydralazine 3 times a day, increase lisinopril from 20 mg daily to 30 mg daily -BP this morning on the higher side, discussed with patient the importance of BP control. Verbalized understanding -Continue monitoring BP and heart rate and adjusting medications accordingly. GERD -Continue ranitidine Constipation -Bowel regimen DVT prop Eliquis Discussed with patient, and nurse. Jo Ann Ashraf Feb 04, 2018 13:05
[2018-02-04 17:00] VITALS: BP 173/88; PULSE 67; RESP 15; TEMP 97.9; O2SAT 97
[2018-02-04 20:00] VITALS: BP 139/81; PULSE 60; RESP 20
[2018-02-05] MEDS: hydrALAZINE HCL 25 MG TAB PO SCH ×3 (05:46→21:38)
[2018-02-05 06:14] VITALS: BP 184/84; PULSE 53; RESP 18; TEMP 97.5; O2SAT 92
[2018-02-05] MEDS: FINASTERIDE 5 MG TAB PO SCH (08:08)
[2018-02-05] MEDS: DOCUSATE SODIUM 50 MG/SENNA 8.6 MG TAB PO SCH ×2 (08:08→21:00)
[2018-02-05] MEDS: LOSARTAN 50 MG TAB PO SCH ×2 (08:08→21:00)
[2018-02-05] MEDS: VENLAFAXINE HCL XR 75 MG CAP PO SCH (08:08)
[2018-02-05] MEDS: FOLIC ACID 1 MG TAB PO SCH (08:08)
[2018-02-05] MEDS: APIXABAN 2.5 MG TABLET PO SCH ×2 (08:09→21:00)
[2018-02-05] MEDS: PRAVASTATIN SOD 40 MG TAB PO SCH (08:09)
[2018-02-05] MEDS: FAMOTIDINE 20 MG TAB PO SCH ×2 (08:09→21:00)
[2018-02-05] MEDS: LISINOPRIL 10 MG TAB PO SCH (08:10)
[2018-02-05] MEDS: VERAPAMIL HCL 120 MG TAB PO SCH (08:14)
--- NOTE | 2018-02-05 14:18 | HHI.PYPN ---
Subjective Remarks Reviewed electronic medical record and discussed case with staff. Nurse reports that patient has been refusing to take his blood pressure medication.'s been isolating to his room except for meals. However he has not had any behaviors. Follow-up was conducted in patient's room. Patient found lying in bed. Patient's speech is somewhat disorganized. Mental Status Examination Appearance: Appropriate Consciousness: Alert Orientation: Person, Date/Time (Here only) Speech: Slow Language: Adequate Fund of Knowledge: Inadequate Attention and Concentration: Inadequate Memory: Impaired Mood: Good, Other (Depressed) Affect: Euthymic Thought Process & Associations: Other ([place]) Thought Content: Thought blocking (Lessening) Hallucination Type: None Delusion Type: None Suicidal Ideation: Yes (Denies today) Suicidal Plan: No Suicidal Intention: No Homicidal Ideation: No Homicidal Plan: No Homicidal Intention: No Insight: Poor Judgment: Poor Results Vitals/IOs Vital Signs Date Time Temp Pulse Resp B/P (MAP) Pulse Ox O2 Delivery O2 Flow Rate FiO2 02/05/18 06:14 97.5 53 18 184/84 (610) 92 Assessment & Plan Problem List: (1) Major depressive disorder, recurrent, severe w/o psychotic behavior ICD Codes: F33.2 - Major depressive disorder, recurrent severe without psychotic features Assessment & Plan Estimated LOS: Continue with current treatment plan. Attending psychiatrist for follow-up tomorrow. Days Justification for Cont. Inpt. Moving this patient to a lower level of care would likely result in a decompensation. Xiomara Colby Feb 05, 2018 14:18
--- NOTE | 2018-02-05 15:40 | HHI.PR ---
Subjective Remarks Follow-up visit constipation, HTN, GERD, A flutter, DVT. Patient seen and examined, lying in bed sleeping. Awakens to voice, denies any pain or acute complaints. Hypertensive overnight. He denies any headaches, dizziness, lightheadedness, visual changes, chest pain, palpitations, shortness of breath, cough or leg swelling. Objective Vitals Vital Signs Date Time Temp Pulse Resp B/P (MAP) Pulse Ox O2 Delivery O2 Flow Rate FiO2 02/05/18 06:14 97.5 53 18 184/84 (117) 92 02/04/18 20:00 60 20 139/81 (100) 02/04/18 17:00 97.9 67 15 173/88 (116) 97 I/O 02/04/18 02/04/18 02/04/18 02/05/18 02/05/18 02/05/18 07:00 15:00 23:00 07:00 15:00 23:00 Intake Total 360 ml 240 ml Balance 360 ml 240 ml Intake Oral 240 ml 240 ml Oral Supplement 120 ml # Voids 1 Result Diagram: 02/01/1890402/01/18904 Objective Remarks GENERAL: This is a well-nourished, well-developed patient, in no apparent distress. SKIN: Warm and dry. HEAD: Normocephalic. EYES: Pupils equal round and reactive. No scleral icterus. No injection or drainage. ENT: Nose without bleeding. Airway patent. NECK: Trachea midline. CARDIOVASCULAR: Regular rate without murmurs, gallops, or rubs. RESPIRATORY: Clear to auscultation. Breath sounds equal bilaterally. No wheezes , rales, or rhonchi. GASTROINTESTINAL: Abdomen soft, non-tender. Bowel sounds hypoactive MUSCULOSKELETAL: Extremities without clubbing, cyanosis, or edema. NEUROLOGICAL: Awake and alert. Flat affect. Oriented to place, person motor and sensory grossly within normal limits. A/P Problem List: (1) HTN (hypertension) ICD Code: I10 - Essential (primary) hypertension (2) Depression ICD Code: F32.9 - Major depressive disorder, single episode, unspecified (3) Atrial flutter ICD Code: I48.92 - Unspecified atrial flutter (4) Major depressive disorder, recurrent, severe w/o psychotic behavior ICD Code: F33.2 - Major depressive disorder, recurrent severe without psychotic features Assessment and Plan Patient is a 77-year-old male with primary medical history of HTN, [place] with stent placement, GERD, a flutter, DVT, depression who came into the hospital as transferred from [facility] secondary to suicidal attempt. He is now admitted to inpatient psychiatry unit for further evaluation. Consulted for assistance with medical management. Depression Suicidal attempt -Managed by psychiatry team Slow Speech Gen Weakness, unsteady gait -PT eval and treat. No PT recommendation in the outpatient setting A flutter History of DVT -Continue home Eliquis 2.5 mg twice daily -Continue verapamil - EKG shows sinus bradycardia HTN HLD -pravastatin 40 mg daily. -Losartan to 50 mg twice daily, Hydralazine 3 times a day, increase lisinopril from 20 mg daily to 30 mg daily. Patient refusing hydralazine, encouraged patient to take antihypertensive meds. Agreed. Clonidine available as needed. -BP this morning on the higher side, discussed with patient the importance of BP control. Verbalized understanding -Continue monitoring BP and heart rate and adjusting medications accordingly. GERD -Continue ranitidine Constipation -Bowel regimen DVT prop Eliquis Discussed with patient, and nurse. Anastacia Hillman Feb 05, 2018 15:40
[2018-02-06 06:09] VITALS: BP 174/88; PULSE 56; RESP 18; TEMP 97.9; O2SAT 99
[2018-02-06] MEDS: hydrALAZINE HCL 25 MG TAB PO SCH ×3 (06:23→21:07)
[2018-02-06] MEDS: LISINOPRIL 10 MG TAB PO SCH (09:00)
[2018-02-06] MEDS: DOCUSATE SODIUM 50 MG/SENNA 8.6 MG TAB PO SCH ×2 (09:00→21:08)
[2018-02-06] MEDS: LOSARTAN 50 MG TAB PO SCH ×2 (09:00→21:07)
[2018-02-06] MEDS: VENLAFAXINE HCL XR 75 MG CAP PO SCH (09:00)
[2018-02-06] MEDS: FOLIC ACID 1 MG TAB PO SCH (09:00)
[2018-02-06] MEDS: VERAPAMIL HCL 120 MG TAB PO SCH (09:00)
[2018-02-06] MEDS: APIXABAN 2.5 MG TABLET PO SCH ×2 (09:00→21:08)
[2018-02-06] MEDS: PRAVASTATIN SOD 40 MG TAB PO SCH (09:00)
[2018-02-06] MEDS: FAMOTIDINE 20 MG TAB PO SCH ×2 (09:00→21:07)
[2018-02-06] MEDS: FINASTERIDE 5 MG TAB PO SCH (09:00)
--- NOTE | 2018-02-06 12:17 | HHI.PR ---
Subjective Remarks Follow-up visit for HTN, GERD, a.flutter and DVT. Spoke with nurse who repots patient is more depressed and is not taking medications. Patient is seen and examined in his room in bed in no acute distress. Denies fevers, chills, n/v/d, headache, dizziness, cough or SOB. When asked the reason behind him not taking his medications he states he is not taking his medications because he did not get any help today when taking a shower. Objective Vitals Vital Signs Date Time Temp Pulse Resp B/P (MAP) Pulse Ox O2 Delivery O2 Flow Rate FiO2 02/06/18 06:09 97.9 56 18 174/88 (116) 99 I/O 02/05/18 02/05/18 02/05/18 02/06/18 02/06/18 02/06/18 07:00 15:00 23:00 07:00 15:00 23:00 Intake Total 720 ml Balance 720 ml Intake Oral 720 ml # Voids 2 2 Objective Remarks GENERAL: This is a well-nourished, well-developed patient, in no apparent distress. SKIN: Cool and dry. HEAD: Normocephalic. EYES: Pupils equal round and reactive. No scleral icterus. No injection or drainage. ENT: Nose without bleeding. Airway patent. NECK: Trachea midline. CARDIOVASCULAR: Regular rate without murmurs, gallops, or rubs. RESPIRATORY: Clear to auscultation. Breath sounds equal bilaterally. No wheezes , rales, or rhonchi. GASTROINTESTINAL: Abdomen soft, non-tender, protuberant. Bowel sounds hypoactive MUSCULOSKELETAL: Extremities without clubbing, cyanosis, or edema. NEUROLOGICAL: Awake and alert. Flat affect. Oriented to place, person motor and sensory grossly within normal limits. Slow speech. A/P Problem List: (1) HTN (hypertension) ICD Code: I10 - Essential (primary) hypertension (2) Depression ICD Code: F32.9 - Major depressive disorder, single episode, unspecified (3) Atrial flutter ICD Code: I48.92 - Unspecified atrial flutter (4) Major depressive disorder, recurrent, severe w/o psychotic behavior ICD Code: F33.2 - Major depressive disorder, recurrent severe without psychotic features Assessment and Plan Patient is a 77-year-old male with primary medical history of HTN, [place] with stent placement, GERD, a flutter, DVT, depression who came into the hospital as transferred from [facility] secondary to suicidal attempt. He is now admitted to inpatient psychiatry unit for further evaluation. Consulted for assistance with medical management. Depression Suicidal attempt -Managed by psychiatry team Slow Speech Gen Weakness, unsteady gait -PT eval and treat. No PT recommendation in the outpatient setting A flutter History of DVT -Continue home Eliquis 2.5 mg twice daily -Continue verapamil - EKG shows sinus bradycardia HTN HLD -pravastatin 40 mg daily. -Losartan to 50 mg twice daily, Hydralazine 3 times a day, lisinopril 30 mg daily -BP elevated as patient is not taking medications GERD -Continue ranitidine Constipation -Bowel regimen Noncompliance with medications - Discussed with patient the importance of BP control as well as Eliquis to prevent stroke, blood clot, or [place] - He verbalized understanding, although does not seem too interested when I educated him. - Discussed with nursing staff. DVT prop Eliquis Discussed with patient, and nurse. Jo Ann Ashraf Feb 06, 2018 12:17
[2018-02-06 18:36] VITALS: BP 165/89; PULSE 65; RESP 16; TEMP 98.2; O2SAT 99
[2018-02-06] MEDS: diphenhydrAMINE HCL 50 MG CAP PO PRN (21:08)
--- NOTE | 2018-02-06 22:03 | HHI.PYPN ---
Subjective Remarks Patient seen for follow up; chart reviewed. Discussion nursing staff reported the patient has been depressed, dysphoric, refused lunch and has been bed all day, patient also refused medications today. Patient was found lying hospital bed noted to be disheveled, more dysphoric today. Patient states that he had been feeling "I do not feel good" stating that he had not been eating recently states that he had to simply stopped taking his medication since yesterday and when asked why patient states "I guess I took a turn for the worst". Patient was unable to elaborate on reasons why he had felt this way but states that he had been feeling more hopeless and helpless recently. Patient denies having spoken to his children recently. Patient was encouraged to resume medications as well as continue to have adequate nutritional intake which he agreed. Review of Systems Except as stated in HPI: all other systems reviewed are Neg Mental Status Examination Appearance: Appropriate Consciousness: Alert Orientation: Person, Date/Time (Here only) Speech: Slow Language: Adequate Fund of Knowledge: Inadequate Attention and Concentration: Inadequate Memory: Impaired Mood: Sad, Other (Depressed) Affect: Sad Thought Process & Associations: Other ([place]) Thought Content: Thought blocking (Lessening) Hallucination Type: None Delusion Type: None Suicidal Ideation: Yes Suicidal Plan: No Suicidal Intention: No Homicidal Ideation: No Homicidal Plan: No Homicidal Intention: No Insight: Poor Judgment: Poor Results Vitals/IOs Vital Signs Date Time Temp Pulse Resp B/P (MAP) Pulse Ox O2 Delivery O2 Flow Rate FiO2 02/06/18 18:36 98.2 65 16 165/89 (114) 99 Intake and Output 02/06/18 02/06/18 02/07/18 08:00 16:00 00:00 Intake Total 240 ml 120 ml Balance 240 ml 120 ml Assessment & Plan Problem List: (1) Major depressive disorder, recurrent, severe w/o psychotic behavior ICD Codes: F33.2 - Major depressive disorder, recurrent severe without psychotic features Assessment & Plan Patient this time noted to have worsening of depression as patient had ceased taking her medications yesterday, unclear as to any triggering event, has also had decreased nutritional intake as well. Patient was encouraged to resume treatment as well as improve nutritional intake which she agreed. We will continue current treatment. Continue to monitor mood and behavior. Staff to assist patient for daily hygiene routine as he states needs assistance. Collateral formation pending from patient's daughter. Discharge planning in progress. Justification for Cont. Inpt. At risk of further decompensation at lower level care. Joshua Roy MD Feb 06, 2018 22:03
[2018-02-07 06:12] VITALS: BP 155/78; PULSE 54; RESP 18; TEMP 97.6; O2SAT 98
[2018-02-07] MEDS: hydrALAZINE HCL 25 MG TAB PO SCH ×4 (06:34→21:52)
[2018-02-07] MEDS: DOCUSATE SODIUM 50 MG/SENNA 8.6 MG TAB PO SCH ×2 (08:57→20:19)
[2018-02-07] MEDS: FINASTERIDE 5 MG TAB PO SCH (08:58)
[2018-02-07] MEDS: LISINOPRIL 10 MG TAB PO SCH (08:58)
[2018-02-07] MEDS: FAMOTIDINE 20 MG TAB PO SCH ×2 (08:58→20:19)
[2018-02-07] MEDS: FOLIC ACID 1 MG TAB PO SCH (08:58)
[2018-02-07] MEDS: PRAVASTATIN SOD 40 MG TAB PO SCH (08:58)
[2018-02-07] MEDS: APIXABAN 2.5 MG TABLET PO SCH ×2 (08:58→20:19)
[2018-02-07] MEDS: LOSARTAN 50 MG TAB PO SCH ×2 (08:59→20:19)
[2018-02-07] MEDS: VENLAFAXINE HCL XR 75 MG CAP PO SCH (08:59)
[2018-02-07] MEDS: VERAPAMIL HCL 120 MG TAB PO SCH (08:59)
--- NOTE | 2018-02-07 12:22 | HHI.PR ---
Subjective Remarks Follow-up visit for HTN, GERD, a flutter, and DVT. Spoke with nurse reports patient has been compliant with his medications today and is also left his room. He is seen and examined sitting in the day room, when asked how he is doing he reports he is doing "fine". I asked if he is in any pain and he repots he has a pain "in my ass because I can't afford my medications". He states that he tried to kill himself and Medicaid will not help cover the cost of this. He denies any headaches, dizziness, shortness of breath, cough, fevers, chills or chest pain. Objective Vitals Vital Signs Date Time Temp Pulse Resp B/P (MAP) Pulse Ox O2 Delivery O2 Flow Rate FiO2 02/07/18 06:12 97.6 54 18 155/78 (103) 98 02/06/18 18:36 98.2 65 16 165/89 (114) 99 I/O 02/06/18 02/06/18 02/06/18 02/07/18 02/07/18 02/07/18 07:00 15:00 23:00 07:00 15:00 23:00 Intake Total 240 ml 360 ml 720 ml Balance 240 ml 360 ml 720 ml Intake Oral 240 ml 360 ml 720 ml # Voids 2 2 1 Objective Remarks GENERAL: This is a well-nourished, well-developed patient, in no apparent distress. SKIN: Cool and dry. HEAD: Normocephalic. EYES: Pupils equal round and reactive. No scleral icterus. No injection or drainage. ENT: Nose without bleeding. Airway patent. NECK: Trachea midline. CARDIOVASCULAR: Regular rate without murmurs, gallops, or rubs. RESPIRATORY: Clear to auscultation. Breath sounds equal bilaterally. No wheezes , rales, or rhonchi. GASTROINTESTINAL: Abdomen soft, non-tender, protuberant. Normoactive bowel sounds. MUSCULOSKELETAL: Extremities without clubbing, cyanosis, or edema. NEUROLOGICAL: Awake and alert. Flat affect. Oriented to place, person motor and sensory grossly within normal limits. Slow speech. A/P Problem List: (1) HTN (hypertension) ICD Code: I10 - Essential (primary) hypertension (2) Depression ICD Code: F32.9 - Major depressive disorder, single episode, unspecified (3) Atrial flutter ICD Code: I48.92 - Unspecified atrial flutter (4) Major depressive disorder, recurrent, severe w/o psychotic behavior ICD Code: F33.2 - Major depressive disorder, recurrent severe without psychotic features Assessment and Plan Patient is a 77-year-old male with primary medical history of HTN, [place] with stent placement, GERD, a flutter, DVT, depression who came into the hospital as transferred from [facility] secondary to suicidal attempt. He is now admitted to inpatient psychiatry unit for further evaluation. Consulted for assistance with medical management. Depression Suicidal attempt -Managed by psychiatry team Slow Speech Gen Weakness, unsteady gait -PT eval and treat. No PT recommendation in the outpatient setting A flutter History of DVT -Continue home Eliquis 2.5 mg twice daily -Continue verapamil - EKG shows sinus bradycardia HTN HLD -pravastatin 40 mg daily. -Losartan to 50 mg twice daily, Hydralazine 3 times a day, lisinopril 30 mg daily -Compliant with medications today, blood pressure today better. GERD -Continue ranitidine Constipation -Bowel regimen Noncompliance with medications -Reiterated the importance of BP control as well as Eliquis to prevent stroke , blood clot, or [place] -Did take his medications today. DVT prop Eliquis Discussed with patient, and nurse. Jo Ann Ashraf February 07, 2018 12:22
--- NOTE | 2018-02-07 17:27 | HHI.PYPN ---
Subjective Remarks Patient seen for follow-up, chart reviewed. Discussion with nursing staff reported that the patient was compliant with medications but continues to have decreased nutritional intake. Patient found sitting in day room, noted to be irritable and endorsing paranoid delusions of other patients having stolen his money. He states that he does not want to participate in groups and that he does not want to speak to his daughter nor his son. Review of Systems Except as stated in HPI: all other systems reviewed are Neg Mental Status Examination Appearance: Appropriate Consciousness: Alert Orientation: Person, Date/Time (Here only) Speech: Slow Language: Adequate Fund of Knowledge: Inadequate Attention and Concentration: Inadequate Memory: Impaired Mood: Sad, Irritable, Other (Depressed) Affect: Irritable, Sad Thought Process & Associations: Other ([place]) Thought Content: Thought blocking (Lessening), Delusional Hallucination Type: None Delusion Type: Paranoid Suicidal Ideation: Yes Suicidal Plan: No Suicidal Intention: No Homicidal Ideation: No Homicidal Plan: No Homicidal Intention: No Insight: Poor Judgment: Poor Results Vitals/IOs Vital Signs Date Time Temp Pulse Resp B/P (MAP) Pulse Ox O2 Delivery O2 Flow Rate FiO2 02/07/18 06:12 97.6 54 18 155/78 (103) 98 Intake and Output 02/07/18 02/07/18 02/08/18 08:00 16:00 00:00 Intake Total 1080 ml 240 ml Balance 1080 ml 240 ml Assessment & Plan Problem List: (1) Major depressive disorder, recurrent, severe w/o psychotic behavior ICD Codes: F33.2 - Major depressive disorder, recurrent severe without psychotic features Assessment & Plan Patient noted to have worsening of depressed mood, now endorsing paranoia, irritable. Patient recently restarted adhering to treatment but continues to have decreased nutritional intake. Will continue current treatment as patient has restarted taking his medications. Continue to monitor mood and behavior. Will consider starting antipsychotic if patient persists with paranoia. Concern for neurocognitive deficit, will perform MOCA tomorrow. Discharge planning in progress. Justification for Cont. Inpt. At risk for further decompensation at lower level of care. Joshua Roy MD February 07, 2018 17:27
[2018-02-08 05:22] VITALS: BP 157/73; PULSE 55; RESP 16; TEMP 97.7; O2SAT 94
[2018-02-08] MEDS: VERAPAMIL HCL 120 MG TAB PO SCH (09:17)
[2018-02-08] MEDS: PRAVASTATIN SOD 40 MG TAB PO SCH (09:17)
[2018-02-08] MEDS: APIXABAN 2.5 MG TABLET PO SCH ×2 (09:17→21:10)
[2018-02-08] MEDS: DOCUSATE SODIUM 50 MG/SENNA 8.6 MG TAB PO SCH ×2 (09:17→21:09)
[2018-02-08] MEDS: LOSARTAN 50 MG TAB PO SCH ×2 (09:17→21:09)
[2018-02-08] MEDS: FOLIC ACID 1 MG TAB PO SCH (09:17)
[2018-02-08] MEDS: FINASTERIDE 5 MG TAB PO SCH (09:17)
[2018-02-08] MEDS: FAMOTIDINE 20 MG TAB PO SCH ×2 (09:17→21:10)
[2018-02-08] MEDS: LISINOPRIL 10 MG TAB PO SCH (09:17)
[2018-02-08] MEDS: VENLAFAXINE HCL XR 75 MG CAP PO SCH (09:20)
--- NOTE | 2018-02-08 12:33 | HHI.PR ---
Subjective Remarks Follow-up visit for HTN, GERD, a.flutter and DVT. Spoke with nurse who repots patient remains quit depressed, was agreeable to taking his morning medications , but has been refusing them on and off. He is seen and examined in his room resting in bed. He denies any pain, headache, fever, chill. Repots voiding and moving his bowels without difficulties or complaints. He is not very interested in conversing with me. He states that he is "on deaths row". When I ask if there is anything that I can do for him his response is "say good bye". Objective Vitals Vital Signs Date Time Temp Pulse Resp B/P (MAP) Pulse Ox O2 Delivery O2 Flow Rate FiO2 02/08/18 05:22 97.7 55 16 157/73 (101) 94 I/O 02/07/18 02/07/18 02/07/18 02/08/18 02/08/18 02/08/18 07:00 15:00 23:00 07:00 15:00 23:00 Intake Total 1080 ml 240 ml 660 ml Balance 1080 ml 240 ml 660 ml Intake Oral 1080 ml 240 ml 660 ml # Voids 4 2 Objective Remarks GENERAL: This is a well-nourished, well-developed patient, in no apparent distress. EYES: Pupils equal round and reactive. No scleral icterus. No injection or drainage. ENT: Nose without bleeding. Airway patent. NECK: Trachea midline. CARDIOVASCULAR: Regular rate without murmurs, gallops, or rubs. RESPIRATORY: Clear to auscultation. Breath sounds equal bilaterally. No wheezes , rales, or rhonchi. GASTROINTESTINAL: Abdomen soft, non-tender, protuberant. Normoactive bowel sounds. MUSCULOSKELETAL: Extremities without clubbing, cyanosis, or edema. NEUROLOGICAL: Awake and alert. Flat affect. Oriented to place, person motor and sensory grossly within normal limits. Slow speech. A/P Problem List: (1) HTN (hypertension) ICD Code: I10 - Essential (primary) hypertension (2) Depression ICD Code: F32.9 - Major depressive disorder, single episode, unspecified (3) Atrial flutter ICD Code: I48.92 - Unspecified atrial flutter (4) Major depressive disorder, recurrent, severe w/o psychotic behavior ICD Code: F33.2 - Major depressive disorder, recurrent severe without psychotic features Assessment and Plan Patient is a 77-year-old male with primary medical history of HTN, [place] with stent placement, GERD, a flutter, DVT, depression who came into the hospital as transferred from [facility] secondary to suicidal attempt. He is now admitted to inpatient psychiatry unit for further evaluation. Consulted for assistance with medical management. Depression Suicidal attempt -Managed by psychiatry team - Continues to be very depressed Slow Speech Gen Weakness, unsteady gait -PT eval and treat. No PT recommendation in the outpatient setting A flutter History of DVT -Continue home Eliquis 2.5 mg twice daily -Continue verapamil - EKG shows sinus bradycardia HTN HLD -pravastatin 40 mg daily. -Losartan to 50 mg twice daily, Hydralazine 3 times a day, lisinopril 30 mg daily -Compliant with medications this morning, although BP continues to be high as he is noncompliant at times with these. No medication adjustment at this time as the reason behind his HTN is not taking medications consistently. GERD -Continue ranitidine Constipation -Bowel regimen Noncompliance with medications - Likely secondary to depression -Continue to reiterated the importance of BP control as well as Eliquis to prevent stroke, blood clot, or [place] -Did take his medications this morning, although continues to refuse them on and off. DVT prop Eliquis Discussed with patient, and nurse. Jo Ann Ashraf February 08, 2018 12:33
[2018-02-08] MEDS: hydrALAZINE HCL 25 MG TAB PO SCH ×2 (14:00→21:19)
--- NOTE | 2018-02-08 15:10 | PD.TTN ---
Patient Problems 1. Discharge planning 2. Medication compliance 3. Knowledge deficit 4. Lack of coping skills Progress Toward Goals Provider Present: Dr. Mick Roy Provider Input: 02/08/18 pt is worsening and refusing treatment and appearing psychotic 02/06/18 pt has not had a good weekend and stopped medications Med adjustment, griefing loss of his Psychiatric Counselors Present: Jennifer Singh LCSW, Jessika Quevedo, [facility], Olu Andrew Jr., [facility], Radha Valdez, [facility], Bibi Lugo, [facility] Psych Therapist Input: 02/08/18 pt is very depressed and watchful and flat affect and avoiding interaction, keeping to self he is in [place] tomorrow and daugther is coming 02/06/18 pt is withdrawing more 02/01/18: Will go home when stable. Very dependant Group Spec/RT/OT/CASTILLO Present: Daria Sanchez, [place], Gee Tariq, OT Group Spec/RT/OT/CASTILLO Input: 02/08/18 pt has not been attending 02/06/18 [place] [facility] Attemds select groups with Supervision Documentation Scribe: Jennifer Cao LCSW February 08, 2018 15:10
[2018-02-08 21:42] VITALS: BP 133/78; PULSE 55
--- NOTE | 2018-02-08 22:05 | HHI.PYPN ---
Subjective Remarks Patient seen for follow up; chart reviewed. Discussion nursing staff reported the patient continues to be withdrawn, flat affect but compliant with medications but noted to be paranoid. Patient was found sitting in the room noted to be irritable, superficial cooperative. Patient states "they are giving up my money" referring to patients and staff members on the unit. Patient noted to be paranoid with delusions of people stealing his money. Patient refusing to participate in groups and activities, refusing to speak with family despite encouragement. Patient continues report feeling depressed and continued suicidal ideation. Review of Systems Except as stated in HPI: all other systems reviewed are Neg Mental Status Examination Appearance: Appropriate Consciousness: Alert Orientation: Person, Date/Time (Here only) Speech: Slow Language: Adequate Fund of Knowledge: Inadequate Attention and Concentration: Inadequate Memory: Impaired Mood: Sad, Irritable, Other (Depressed) Affect: Irritable, Sad Thought Process & Associations: Other ([place]) Thought Content: Thought blocking (Lessening), Delusional Hallucination Type: None Delusion Type: Paranoid Suicidal Ideation: Yes Suicidal Plan: No Suicidal Intention: No Homicidal Ideation: No Homicidal Plan: No Homicidal Intention: No Insight: Poor Judgment: Poor Results Vitals/IOs Vital Signs Date Time Temp Pulse Resp B/P (MAP) Pulse Ox O2 Delivery O2 Flow Rate FiO2 02/08/18 21:42 55 133/78 (96) 02/08/18 05:22 97.7 16 94 Intake and Output 02/08/18 02/08/18 02/09/18 08:00 16:00 00:00 Intake Total 360 ml 660 ml 240 ml Balance 360 ml 660 ml 240 ml Assessment & Plan Problem List: (1) Major depressive disorder, recurrent, severe w/o psychotic behavior ICD Codes: F33.2 - Major depressive disorder, recurrent severe without psychotic features Assessment & Plan Patient with continued depressed mood with suicide ideations but has begun to have paranoid delusions today regarding people stealing his money. Patient has been agreeable to resuming medications. We will continue to monitor for now with current treatment, if patient continues with persistent paranoid delusions consider starting antipsychotic to address psychotic symptoms. Continue to encourage patient to participate in groups and activities, and maintain adequate nutritional intake along with adherence to treatment. Discharge planning in progress. Justification for Cont. Inpt. At risk of further decompensation at lower level of care. Discharge Planning Return back to his residence. Joshua Roy MD February 08, 2018 22:05
[2018-02-09 05:18] VITALS: BP 157/74; PULSE 53; RESP 16; TEMP 97.9; O2SAT 95
[2018-02-09] MEDS: hydrALAZINE HCL 25 MG TAB PO SCH ×3 (06:20→22:00)
[2018-02-09] MEDS: VERAPAMIL HCL 120 MG TAB PO SCH (08:25)
[2018-02-09] MEDS: FAMOTIDINE 20 MG TAB PO SCH ×2 (08:25→21:00)
[2018-02-09] MEDS: VENLAFAXINE HCL XR 75 MG CAP PO SCH (08:25)
[2018-02-09] MEDS: PRAVASTATIN SOD 40 MG TAB PO SCH (08:25)
[2018-02-09] MEDS: LISINOPRIL 10 MG TAB PO SCH (08:26)
[2018-02-09] MEDS: FINASTERIDE 5 MG TAB PO SCH (08:26)
[2018-02-09] MEDS: APIXABAN 2.5 MG TABLET PO SCH ×2 (08:26→21:00)
[2018-02-09] MEDS: LOSARTAN 50 MG TAB PO SCH ×2 (08:26→21:00)
[2018-02-09] MEDS: FOLIC ACID 1 MG TAB PO SCH (08:27)
[2018-02-09] MEDS: DOCUSATE SODIUM 50 MG/SENNA 8.6 MG TAB PO SCH ×2 (08:27→21:00)
--- NOTE | 2018-02-09 11:35 | HHI.PR ---
Subjective Remarks Follow-up visit for HTN, GERD, a.flutter and DVT. Patient is seen sitting on the floor in the corner of [facility]. When asked how he is doing today he states "go ask them". When I ask if I can examine him he states no. When asked if he is any any pain he states "its none of your business". Spoke with nurse who reports patient continues to be very depressed, taking some of his medications at times. He did eat lunch and dinner today. Objective Vitals Vital Signs Date Time Temp Pulse Resp B/P (MAP) Pulse Ox O2 Delivery O2 Flow Rate FiO2 02/09/18 05:18 97.9 53 16 157/74 (101) 95 02/08/18 21:42 55 133/78 (96) I/O 02/08/18 02/08/18 02/08/18 02/09/18 02/09/18 02/09/18 07:00 15:00 23:00 07:00 15:00 23:00 Intake Total 1020 ml 480 ml 0 ml 420 ml Balance 1020 ml 480 ml 0 ml 420 ml Intake Oral 1020 ml 480 ml 0 ml 420 ml # Voids 2 1 Objective Remarks Limited as patient refusing exam GENERAL: This is a well-nourished, well-developed patient, in no apparent distress. RESPIRATORY: Does not appear to be in any respiratory distress. NEUROLOGICAL: Awake and alert. Flat affect. Slow speech. Moves all extremities. A/P Problem List: (1) HTN (hypertension) ICD Code: I10 - Essential (primary) hypertension (2) Depression ICD Code: F32.9 - Major depressive disorder, single episode, unspecified (3) Atrial flutter ICD Code: I48.92 - Unspecified atrial flutter (4) Major depressive disorder, recurrent, severe w/o psychotic behavior ICD Code: F33.2 - Major depressive disorder, recurrent severe without psychotic features Assessment and Plan Patient is a 77-year-old male with primary medical history of HTN, [place] with stent placement, GERD, a flutter, DVT, depression who came into the hospital as transferred from [facility] secondary to suicidal attempt. He is now admitted to inpatient psychiatry unit for further evaluation. Consulted for assistance with medical management. Depression Suicidal attempt - Managed by psychiatry team - Continues to be very depressed, does not allow me to examine him today. Slow Speech Gen Weakness, unsteady gait -PT eval and treat. No PT recommendation in the outpatient setting A flutter History of DVT -Continue home Eliquis 2.5 mg twice daily -Continue verapamil - EKG shows sinus bradycardia HTN HLD -pravastatin 40 mg daily. -Losartan to 50 mg twice daily, Hydralazine 3 times a day, lisinopril 30 mg daily - compliant with medications on and off, BP with some improvement GERD -Continue ranitidine Constipation -Bowel regimen Noncompliance with medications - Likely secondary to depression -Continue to reiterated the importance of BP control as well as Eliquis to prevent stroke, blood clot, or [place] -Did take his medications this morning, although continues to refuse them on and off. DVT prop Eliquis Discussed with patient, and nurse. Jo Ann Ashraf February 09, 2018 11:34
[2018-02-09] MEDS: QUEtiapine FUMARATE 25 MG TAB PO SCH ×3 (12:00→21:00)
[2018-02-09] MEDS ORDERED: PILL SPLITTER OTHER PRN (12:15)
--- NOTE | 2018-02-09 16:43 | HHI.PYPN ---
Subjective Remarks Patient seen for follow, chart reviewed. Discussion nursing staff reported patient refuse meds this afternoon but took them this morning, it was found in the hallway sitting on the floor and had to be redirected back to his room and has been isolative since. Patient was found lying hospital bed noted to be superficially cooperative, oppositional and irritable. Patient presented to mental health court earlier this morning, mental health court patient safety coordinator team patient to necessitate involuntary hospitalization and appointed patient's brother, Ascencion Martin as health care surrogate and guardian advocate during this admission. Patient states that "they are giving out with him any continues to endorse paranoid delusions as well as delusions that staff is stealing his money from his accounts. When encouraged patient to be more participatory out of his room patient refuses, patient also refuses to speak with family but was happy that he had seen his daughter during court for that short period of time. Patient continues to report feeling depressed, continues to have thoughts of not wanting to be alive. Review of Systems Except as stated in HPI: all other systems reviewed are Neg Mental Status Examination Appearance: Appropriate Consciousness: Alert Orientation: Person, Date/Time (Here only) Speech: Slow Language: Adequate Fund of Knowledge: Inadequate Attention and Concentration: Inadequate Memory: Impaired Mood: Sad, Oppositional, Irritable Affect: Irritable, Sad Thought Process & Associations: Other ([place]) Thought Content: Thought blocking (Lessening), Delusional Hallucination Type: None Delusion Type: Paranoid Suicidal Ideation: Yes Suicidal Plan: No Suicidal Intention: No Homicidal Ideation: No Homicidal Plan: No Homicidal Intention: No Insight: Poor Judgment: Poor Results Vitals/IOs Vital Signs Date Time Temp Pulse Resp B/P (MAP) Pulse Ox O2 Delivery O2 Flow Rate FiO2 02/09/18 05:18 97.9 53 16 157/74 (101) 95 Intake and Output 02/09/18 02/09/18 02/10/18 08:00 16:00 00:00 Intake Total 0 ml 540 ml Balance 0 ml 540 ml Assessment & Plan Problem List: (1) Major depressive disorder, recurrent, severe with psychotic features ICD Codes: F33.3 - Major depressive disorder, recurrent, severe with psychotic symptoms Assessment & Plan Patient with continued depressive symptoms, suicidal ideations, now more withdrawn, noted to have regression and with paranoid ideation and delusions. Will start quetiapine 12.5mg PO BID for psychosis, continue rest of medications. Continue to encourage patient to maintain personal hygiene and participate in groups and activities along with adherence to treatment Patient was retained to mental health Court for involuntary hospitalization, patient's brother was reported healthcare surrogate and guardian advocate which she was contacted by travel writer and had consent to start quetiapine for psychosis. Discharge planning in progress. Justification for Cont. Inpt. At risk for decompensation at lower level care. Discharge Planning To be determined. Joshua Roy MD February 09, 2018 16:43
[2018-02-09] MEDS ORDERED: LORazepam 2 MG/ML VIAL IM ONE (22:45)
[2018-02-10] VITALS: BP 93/59; PULSE 83
[2018-02-10 05:39] VITALS: BP 135/64; PULSE 56; RESP 15; TEMP 98.4; O2SAT 96
[2018-02-10] MEDS: hydrALAZINE HCL 25 MG TAB PO SCH ×3 (06:29→21:56)
[2018-02-10] MEDS: VENLAFAXINE HCL XR 75 MG CAP PO SCH (08:33)
[2018-02-10] MEDS: LOSARTAN 50 MG TAB PO SCH ×2 (08:33→21:56)
[2018-02-10] MEDS: APIXABAN 2.5 MG TABLET PO SCH ×2 (08:33→21:58)
[2018-02-10] MEDS: FINASTERIDE 5 MG TAB PO SCH (08:33)
[2018-02-10] MEDS: FAMOTIDINE 20 MG TAB PO SCH ×2 (08:33→21:56)
[2018-02-10] MEDS: VERAPAMIL HCL 120 MG TAB PO SCH (08:33)
[2018-02-10] MEDS: FOLIC ACID 1 MG TAB PO SCH (08:33)
[2018-02-10] MEDS: LISINOPRIL 10 MG TAB PO SCH (08:34)
[2018-02-10] MEDS: PRAVASTATIN SOD 40 MG TAB PO SCH (08:34)
[2018-02-10] MEDS: DOCUSATE SODIUM 50 MG/SENNA 8.6 MG TAB PO SCH ×2 (08:34→21:56)
[2018-02-10] MEDS: QUEtiapine FUMARATE 25 MG TAB PO SCH ×2 (08:34→21:56)
--- NOTE | 2018-02-10 13:29 | HHI.PYPN ---
Subjective Remarks Patient seen for follow, chart reviewed. Discussion nursing staff reported the patient was slightly agitated last night had received Ativan 1 IM as well as having refuses medications last evening but eventually took with encouragement. Patient this morning took medications well, was out for meals eating breakfast noted to be in good spirits. Patient was found in the room notably, cooperative. Patient states that he has been feeling "good", agreed to shower today and requesting assistance to speak with his daughter. Patient states his mood has been better today and did not perseverate on paranoid delusions of people taking his money today. Review of Systems Except as stated in HPI: all other systems reviewed are Neg Mental Status Examination Appearance: Appropriate Consciousness: Alert Orientation: Person, Date/Time (Here only) Speech: Slow Language: Adequate Fund of Knowledge: Inadequate Attention and Concentration: Inadequate Memory: Impaired Mood: Other ("Good") Affect: Irritable, Blunt Thought Process & Associations: Other ([place]) Thought Content: Thought blocking (Lessening), Delusional Hallucination Type: None Delusion Type: Paranoid (People taking his money) Suicidal Ideation: Yes Suicidal Plan: No Suicidal Intention: No Homicidal Ideation: No Homicidal Plan: No Homicidal Intention: No Insight: Poor Judgment: Poor Results Vitals/IOs Vital Signs Date Time Temp Pulse Resp B/P (MAP) Pulse Ox O2 Delivery O2 Flow Rate FiO2 02/10/18 05:39 98.4 56 15 135/64 (87) 96 Intake and Output 02/10/18 02/10/18 02/11/18 08:00 16:00 00:00 Intake Total 0 ml Balance 0 ml Assessment & Plan Problem List: (1) Major depressive disorder, recurrent, severe with psychotic features ICD Codes: F33.3 - Major depressive disorder, recurrent, severe with psychotic symptoms Assessment & Plan Patient appears to have some improvement today not noted to be irritable or oppositional but continues to be very guarded, decrease perseveration on paranoia and delusions of people taking his money. We will continue current treatment as patient recently started on antipsychotic appears to be improving. Continue monitor mood and behavior. Discharge planning in progress. Justification for Cont. Inpt. At risk of further decompensation at lower level care. Discharge Planning Patient return back to his residence when psychiatrically stable. Joshua Roy MD February 10, 2018 13:29
--- NOTE | 2018-02-10 13:53 | HHI.PR ---
Subjective Remarks Follow-up visit for hypertension, a flutter, DVT. Spoke with nurse who reports patient was agitated overnight and received dose of Ativan. He continues to be often noncompliant with his medications. Patient seen and examined resting in bed asleep, easily arousable to voice. He reports he is doing "fine just sleepy " he denies any fevers, chills, or headaches. When asked if he is going to the bathroom okay reports yes. He denies any pain or discomfort. Objective Vitals Vital Signs Date Time Temp Pulse Resp B/P (MAP) Pulse Ox O2 Delivery O2 Flow Rate FiO2 02/10/18 05:39 98.4 56 15 135/64 (87) 96 02/10/18 00:00 83 93/59 (70) I/O 02/09/18 02/09/18 02/09/18 02/10/18 02/10/18 02/10/18 07:00 15:00 23:00 07:00 15:00 23:00 Intake Total 0 ml 540 ml 0 ml Balance 0 ml 540 ml 0 ml Intake Oral 0 ml 540 ml Oral Supplement 0 ml # Voids 1 Objective Remarks GENERAL: This is a well-nourished, well-developed patient, in no apparent distress. ENT: Nose without bleeding. Airway patent. NECK: Trachea midline. CARDIOVASCULAR: Regular rate without murmurs, gallops, or rubs. RESPIRATORY: Clear to auscultation. Breath sounds equal bilaterally. No wheezes , rales, or rhonchi. GASTROINTESTINAL: Abdomen soft, non-tender, protuberant. Normoactive bowel sounds. MUSCULOSKELETAL: Extremities without clubbing, cyanosis, or edema. NEUROLOGICAL: In bed asleep, arouses easily to voice, motor and sensory grossly within normal limits. Slow speech. A/P Problem List: (1) HTN (hypertension) ICD Code: I10 - Essential (primary) hypertension (2) Depression ICD Code: F32.9 - Major depressive disorder, single episode, unspecified (3) Atrial flutter ICD Code: I48.92 - Unspecified atrial flutter (4) Major depressive disorder, recurrent, severe w/o psychotic behavior ICD Code: F33.2 - Major depressive disorder, recurrent severe without psychotic features Assessment and Plan Patient is a 77-year-old male with primary medical history of HTN, [place] with stent placement, GERD, a flutter, DVT, depression who came into the hospital as transferred from [facility] secondary to suicidal attempt. He is now admitted to inpatient psychiatry unit for further evaluation. Consulted for assistance with medical management. Depression Suicidal attempt - Managed by psychiatry team -Nursing reports ongoing depression with agitation overnight requiring Ativan. Slow Speech Gen Weakness, unsteady gait -PT eval and treat. No PT recommendation in the outpatient setting A flutter History of DVT -Continue home Eliquis 2.5 mg twice daily -Continue verapamil - EKG shows sinus bradycardia -Heart rate stable with some bradycardia, no symptoms reported. HTN HLD -pravastatin 40 mg daily. -Losartan to 50 mg twice daily, Hydralazine 3 times a day, lisinopril 30 mg daily -Continues to be often noncompliant with medications, BP overnight and this morning improved. GERD -Continue ranitidine Constipation -Bowel regimen Noncompliance with medications - Likely secondary to depression -Continue to reiterated the importance of BP control as well as Eliquis to prevent stroke, blood clot, or [place] DVT prop Eliquis Discussed with patient, and nurse. Jo Ann Ashraf February 10, 2018 13:53
[2018-02-11] MEDS: hydrALAZINE HCL 25 MG TAB PO SCH ×3 (06:00→21:53)
[2018-02-11 06:42] VITALS: BP 143/66; PULSE 63; RESP 17; TEMP 97.5; O2SAT 98
[2018-02-11] MEDS: VENLAFAXINE HCL XR 75 MG CAP PO SCH (09:55)
[2018-02-11] MEDS: LISINOPRIL 10 MG TAB PO SCH (09:56)
[2018-02-11] MEDS: VERAPAMIL HCL 120 MG TAB PO SCH (09:56)
[2018-02-11] MEDS: FINASTERIDE 5 MG TAB PO SCH (09:56)
[2018-02-11] MEDS: PRAVASTATIN SOD 40 MG TAB PO SCH (09:56)
[2018-02-11] MEDS: FAMOTIDINE 20 MG TAB PO SCH ×3 (09:56→21:58)
[2018-02-11] MEDS: FOLIC ACID 1 MG TAB PO SCH (09:56)
[2018-02-11] MEDS: LOSARTAN 50 MG TAB PO SCH ×3 (09:56→21:57)
[2018-02-11] MEDS: DOCUSATE SODIUM 50 MG/SENNA 8.6 MG TAB PO SCH ×3 (09:56→21:58)
[2018-02-11] MEDS: APIXABAN 2.5 MG TABLET PO SCH ×3 (09:56→21:57)
[2018-02-11] MEDS: QUEtiapine FUMARATE 25 MG TAB PO SCH ×3 (09:57→21:58)
--- NOTE | 2018-02-11 12:35 | HHI.PYPN ---
Subjective Remarks Patient was seen and case discussed with nursing. Patient is flat and minimally cooperative. He spends all of his time in bed. Per nursing he is eating and sleeping well. Compliant with medications. Says he feels "tired." He does deny suicidal suicidal or homicidal ideation intent or plan Mental Status Examination Appearance: Appropriate Consciousness: Alert Orientation: Person, Date/Time (Here only) Speech: Slow Language: Adequate Fund of Knowledge: Inadequate Attention and Concentration: Inadequate Memory: Impaired Mood: Other ("Good") Affect: Irritable, Blunt Thought Process & Associations: Other ([place]) Thought Content: Thought blocking (Lessening), Delusional Hallucination Type: None Delusion Type: Paranoid (People taking his money) Suicidal Ideation: No Suicidal Plan: No Suicidal Intention: No Homicidal Ideation: No Homicidal Plan: No Homicidal Intention: No Insight: Poor Judgment: Poor Results Vitals/IOs Vital Signs Date Time Temp Pulse Resp B/P (MAP) Pulse Ox O2 Delivery O2 Flow Rate FiO2 02/11/18 06:42 97.5 63 17 143/66 (91) 98 Intake and Output 02/11/18 02/11/18 02/12/18 08:00 16:00 00:00 Intake Total 240 ml Balance 240 ml Assessment & Plan Problem List: (1) Major depressive disorder, recurrent, severe with psychotic features ICD Codes: F33.3 - Major depressive disorder, recurrent, severe with psychotic symptoms Assessment & Plan Continue current treatment plan Justification for Cont. Inpt. Patient would decompensate in a less restrictive setting Hiro Figueroa DO February 11, 2018 12:35
--- NOTE | 2018-02-11 13:29 | HHI.PR ---
Subjective Remarks Follow-up visit for HTN, a flutter, and A. fib. Patient is seen and examined in his room, today is a little more talkative than yesterday. He denies any fevers, chills, nausea, vomiting, shortness of breath, cough or chest pain. He reports that he has been sleepy as his medications are being adjusted. Discussed with nurse, Seroquel has been recently increased. Nurse with concerns for patient developing hypotension due to the amount of medications he is taking. No other complaints or concerns. Objective Vitals Vital Signs Date Time Temp Pulse Resp B/P (MAP) Pulse Ox O2 Delivery O2 Flow Rate FiO2 02/11/18 06:42 97.5 63 17 143/66 (91) 98 I/O 02/10/18 02/10/18 02/10/18 02/11/18 02/11/18 02/11/18 07:00 15:00 23:00 07:00 15:00 23:00 Intake Total 0 ml 240 ml Balance 0 ml 240 ml Intake Oral 240 ml Oral Supplement 0 ml Objective Remarks GENERAL: This is a well-nourished, well-developed patient, in no apparent distress. ENT: Nose without bleeding. Airway patent. NECK: Trachea midline. CARDIOVASCULAR: Regular rate without murmurs, gallops, or rubs. RESPIRATORY: Clear to auscultation. Breath sounds equal bilaterally. No wheezes , rales, or rhonchi. GASTROINTESTINAL: Abdomen soft, non-tender, protuberant. Normoactive bowel sounds. MUSCULOSKELETAL: Extremities without clubbing, cyanosis, or edema. NEUROLOGICAL: Awake, alert, moving bilateral upper and lower extremity spontaneously., motor and sensory grossly within normal limits. Slow speech, flat affect. A/P Problem List: (1) HTN (hypertension) ICD Code: I10 - Essential (primary) hypertension (2) Depression ICD Code: F32.9 - Major depressive disorder, single episode, unspecified (3) Atrial flutter ICD Code: I48.92 - Unspecified atrial flutter (4) Major depressive disorder, recurrent, severe w/o psychotic behavior ICD Code: F33.2 - Major depressive disorder, recurrent severe without psychotic features Assessment and Plan Patient is a 77-year-old male with primary medical history of HTN, [place] with stent placement, GERD, a flutter, DVT, depression who came into the hospital as transferred from [facility] secondary to suicidal attempt. He is now admitted to inpatient psychiatry unit for further evaluation. Consulted for assistance with medical management. Depression Suicidal attempt - Managed by psychiatry team -Seroquel recently increased Slow Speech Gen Weakness, unsteady gait -PT eval and treat. No PT recommendation in the outpatient setting A flutter History of DVT -Continue home Eliquis 2.5 mg twice daily - EKG shows sinus bradycardia -Heart rate stable with some bradycardia, no symptoms reported. -Will decrease dose of verapamil to 80 mg daily, continue monitoring monitoring heart rate and blood pressure. HTN HLD -pravastatin 40 mg daily. -Losartan to 50 mg twice daily, Hydralazine 3 times a day, lisinopril 30 mg daily (parameters to hold for SBP<100 or DBP<60) -Continues to be often noncompliant with medications, BP overnight and this morning improved. GERD -Continue ranitidine Constipation -Bowel regimen Noncompliance with medications - Likely secondary to depression -Continue to reiterated the importance of BP control as well as Eliquis to prevent stroke, blood clot, or [place] DVT prop Eliquis Discussed with patient, and nurse. Jo Ann Ashraf February 11, 2018 13:29
[2018-02-11 18:23] VITALS: BP 118/74; PULSE 63; RESP 17; TEMP 98.3; O2SAT 98
[2018-02-11] MEDS: diphenhydrAMINE HCL 50 MG CAP PO PRN (21:53)
[2018-02-12 05:27] VITALS: BP 131/69; PULSE 54; RESP 16; TEMP 98; O2SAT 98
[2018-02-12] MEDS: hydrALAZINE HCL 25 MG TAB PO SCH ×3 (05:58→20:24)
[2018-02-12] MEDS: VENLAFAXINE HCL XR 75 MG CAP PO SCH (09:33)
[2018-02-12] MEDS: DOCUSATE SODIUM 50 MG/SENNA 8.6 MG TAB PO SCH ×2 (09:34→20:24)
[2018-02-12] MEDS: FOLIC ACID 1 MG TAB PO SCH (09:34)
[2018-02-12] MEDS: FAMOTIDINE 20 MG TAB PO SCH ×2 (09:35→20:23)
[2018-02-12] MEDS: LISINOPRIL 10 MG TAB PO SCH (09:35)
[2018-02-12] MEDS: PRAVASTATIN SOD 40 MG TAB PO SCH (09:36)
[2018-02-12] MEDS: QUEtiapine FUMARATE 25 MG TAB PO SCH ×2 (09:36→20:24)
[2018-02-12] MEDS: APIXABAN 2.5 MG TABLET PO SCH ×2 (09:36→20:23)
[2018-02-12] MEDS: LOSARTAN 50 MG TAB PO SCH ×2 (09:36→20:23)
[2018-02-12] MEDS: FINASTERIDE 5 MG TAB PO SCH (09:36)
[2018-02-12] MEDS: VERAPAMIL HCL 80 MG TAB PO SCH (09:39)
--- NOTE | 2018-02-12 12:38 | HHI.PYPN ---
Subjective Remarks Patient was seen and case discussed with nursing. Patient refused his medications last night. He cannot tell me why. He is out of bed today and was interviewed in the dayroom. Though, speech remains slow and soft with flat affect. He is alert and oriented 2. He knows the state but not the city of that he is in the hospital. It is unclear if he has a possible dementia. He is concerned about his daughter. Denies suicidal or homicidal ideation intent or plan. Mental Status Examination Appearance: Appropriate Consciousness: Alert Orientation: Person, Date/Time (Here only) Speech: Slow Language: Adequate Fund of Knowledge: Inadequate Attention and Concentration: Inadequate Memory: Impaired Mood: Other ("Good") Affect: Irritable, Blunt Thought Process & Associations: Other ([place]) Thought Content: Thought blocking (Lessening), Delusional Hallucination Type: None Delusion Type: Paranoid (People taking his money) Suicidal Ideation: No Suicidal Plan: No Suicidal Intention: No Homicidal Ideation: No Homicidal Plan: No Homicidal Intention: No Insight: Poor Judgment: Poor Results Vitals/IOs Vital Signs Date Time Temp Pulse Resp B/P (MAP) Pulse Ox O2 Delivery O2 Flow Rate FiO2 02/12/18 05:27 98.0 54 16 131/69 (89) 98 Assessment & Plan Problem List: (1) Major depressive disorder, recurrent, severe with psychotic features ICD Codes: F33.3 - Major depressive disorder, recurrent, severe with psychotic symptoms Assessment & Plan Consider evaluation for dementia Justification for Cont. Inpt. Patient would decompensate in a less restrictive setting Hiro Figueroa DO February 12, 2018 12:38
--- NOTE | 2018-02-12 12:57 | HHI.PR ---
Subjective Remarks Follow-up visit for HTN, a flutter, and A. fib. Spoke with nurse today who reports patient was compliant with medication today and has been more social. He has been out of his room and his VS stable. Patient is seen and examined in his room he is cooperative and answering questions appropriate. He denies any fevers, chills, n/v/d, headache, sob, cough, chest pain, dizziness or lightheadedness. He reports he had a "wonderful" night and he even smiles today. He voices no acute concerns today. Objective Vitals Vital Signs Date Time Temp Pulse Resp B/P (MAP) Pulse Ox O2 Delivery O2 Flow Rate FiO2 02/12/18 05:27 98.0 54 16 131/69 (89) 98 02/11/18 18:23 98.3 63 17 118/74 (89) 98 I/O 02/11/18 02/11/18 02/11/18 02/12/18 02/12/18 02/12/18 07:00 15:00 23:00 07:00 15:00 23:00 Intake Total 390 ml 480 ml Balance 390 ml 480 ml Intake Oral 390 ml 480 ml # Voids 4 Objective Remarks GENERAL: This is a well-nourished, well-developed patient, in no apparent distress. ENT: Nose without bleeding. Airway patent. NECK: Trachea midline. CARDIOVASCULAR: Regular rate without murmurs, gallops, or rubs. RESPIRATORY: Clear to auscultation. Breath sounds equal bilaterally. No wheezes , rales, or rhonchi. GASTROINTESTINAL: Abdomen soft, non-tender, protuberant. Normoactive bowel sounds. MUSCULOSKELETAL: Extremities without clubbing, cyanosis, or edema. NEUROLOGICAL: Awake, alert, moving bilateral upper and lower extremity spontaneously., motor and sensory grossly within normal limits. Slow speech, flat affect, but mood is the best I have seen yet. A/P Problem List: (1) HTN (hypertension) ICD Code: I10 - Essential (primary) hypertension (2) Depression ICD Code: F32.9 - Major depressive disorder, single episode, unspecified (3) Atrial flutter ICD Code: I48.92 - Unspecified atrial flutter (4) Major depressive disorder, recurrent, severe w/o psychotic behavior ICD Code: F33.2 - Major depressive disorder, recurrent severe without psychotic features Assessment and Plan Patient is a 77-year-old male with primary medical history of HTN, [place] with stent placement, GERD, a flutter, DVT, depression who came into the hospital as transferred from [facility] secondary to suicidal attempt. He is now admitted to inpatient psychiatry unit for further evaluation. Consulted for assistance with medical management. Depression Suicidal attempt - Managed by psychiatry team -Seroquel recently increased. Today his mood seems much better, compliant with medications. Slow Speech Gen Weakness, unsteady gait -PT eval and treat. No PT recommendation in the outpatient setting A flutter History of DVT -Continue home Eliquis 2.5 mg twice daily - EKG shows sinus bradycardia -Heart rate stable with some bradycardia, no symptoms reported. -Continue verapamil to 80 mg daily. HTN HLD -pravastatin 40 mg daily. -Losartan to 50 mg twice daily, Hydralazine 3 times a day, lisinopril 30 mg daily (parameters to hold for SBP<100 or DBP<60) -compliant with medications today, BP stable GERD -Continue ranitidine Constipation -Bowel regimen Noncompliance with medications - Took medications today. DVT prop Eliquis Discussed with patient, and nurse. [facility] will sign off, please reconsult if needed. Jo Ann Ashraf February 12, 2018 12:57
[2018-02-12 17:50] VITALS: BP 131/75; PULSE 60; RESP 16; TEMP 97.2; O2SAT 98
[2018-02-12 18:12] VITALS: BP 187/83; PULSE 59
[2018-02-13] VITALS (8 sets, daily range): BP systolic 79–161; BP diastolic 53–87; PULSE 66–93; RESP 14–18; TEMP 97.1–97.9; O2SAT 95–98
[2018-02-13] MEDS: hydrALAZINE HCL 25 MG TAB PO SCH (05:00)
--- NOTE | 2018-02-13 07:05 | RADRPT ---
EXAM DATE/TIME: 02/13/2018 06:43 [place] COMPARISON: No previous studies available for comparison. INDICATIONS : Patient fell, hit back of head RADIATION DOSE: 56.35 CTDIvol (mGy) MEDICAL HISTORY : Hypertension. Gastroesophageal reflux disease. SURGICAL HISTORY : Coronary artery stent. ENCOUNTER: Initial ACUITY: 1 day PAIN SCALE: 3/10 LOCATION: occipital TECHNIQUE: Multiple contiguous axial images were obtained of the head. Using automated exposure control and adj ustment of the mA and/or kV according to patient size, radiation dose was kept as low as reasonably a chievable to obtain optimal diagnostic quality images. DICOM format image data is available electro nically for review and comparison. FINDINGS: CEREBRUM: There is mild generalized atrophy. Ventricles are normal. There is mild periventricular white matter low attenuation. No evidence of midline shift, mass lesion, hemorrhage or acute infarction. No extr a-axial fluid collections are seen. POSTERIOR FOSSA: The cerebellum and brainstem demonstrate no acute finding. The 4th ventricle is midline. The cerebe llopontine angle is unremarkable. EXTRACRANIAL: Visualized sinuses are clear. SKULL: The calvaria is intact. No evidence of skull fracture. CONCLUSION: 1. No acute intracranial abnormality is identified. 2. Chronic findings include mild generalized atrophy and chronic periventricular white matter change. Marko Tatum MD on February 13, 2018 at 7:01 Board Certified Radiologist. This report was verified electronically.
[2018-02-13] MEDS: PRAVASTATIN SOD 40 MG TAB PO SCH (09:00)
[2018-02-13] MEDS: FINASTERIDE 5 MG TAB PO SCH (09:00)
[2018-02-13] MEDS: LOSARTAN 50 MG TAB PO SCH (09:00)
[2018-02-13] MEDS: DOCUSATE SODIUM 50 MG/SENNA 8.6 MG TAB PO SCH (09:00)
[2018-02-13] MEDS: VERAPAMIL HCL 80 MG TAB PO SCH (09:00)
[2018-02-13] MEDS: LISINOPRIL 10 MG TAB PO SCH (09:00)
[2018-02-13] MEDS: FOLIC ACID 1 MG TAB PO SCH (09:00)
[2018-02-13] MEDS: FAMOTIDINE 20 MG TAB PO SCH ×2 (09:00→21:27)
[2018-02-13] MEDS: VENLAFAXINE HCL XR 75 MG CAP PO SCH ×2 (09:00→14:55)
[2018-02-13] MEDS: QUEtiapine FUMARATE 25 MG TAB PO SCH ×3 (09:00→21:27)
[2018-02-13] MEDS: APIXABAN 2.5 MG TABLET PO SCH ×2 (09:00→21:25)
--- NOTE | 2018-02-13 09:31 | HHI.PR ---
Subjective Remarks Follow-up visit for HTN, a flutter, DVT, and depression. Received a call this morning from nurse who states that patient fell around 6 AM. This was not a witnessed fall, patient did injure his head, has had CT done today. Nurse states that she is concerned over patient refusing his medications as well as his behavior. Nurse was ambulating in the [place] after fall and afterwards was lying in the hallway in front of the nurses station. He is seen and examined in 2700 unit lying on his right side with mattress on the floor. When asked how he is doing he does not answer me, does make eye contact and acknowledged that I am there however is not interested in conversation. When asked if he is hurting he shakes his head no, when asked if I can examine him he shakes his head no. He is moving all extremities and does not appear to be in any acute distress. Vital signs this morning stable. Objective Vitals Vital Signs Date Time Temp Pulse Resp B/P (MAP) Pulse Ox O2 Delivery O2 Flow Rate FiO2 02/13/18 07:51 97.4 66 16 158/74 (102) 96 02/13/18 05:05 97.1 71 18 117/74 (88) 98 02/12/18 18:12 59 187/83 (117) 02/12/18 17:50 97.2 60 16 131/75 (93) 98 I/O 02/12/18 02/12/18 02/12/18 02/13/18 02/13/18 02/13/18 07:00 15:00 23:00 07:00 15:00 23:00 Intake Total 0 ml Balance 0 ml Intake Oral 0 ml Imaging Last Impressions Head CT 02/13/18 0000 Signed Impressions: Service Date/Time: Tuesday, February 13, 2018 06:43 - CONCLUSION: 1. No acute intracranial abnormality is identified. 2. Chronic findings include mild generalized atrophy and chronic periventricular white matter change. Marko Tatum MD Objective Remarks GENERAL: This is a well-nourished, well-developed patient, in no apparent distress. EYES: Pupils equal round and reactive, normal EOM RESPIRATORY: Nonlabored respirations. MUSCULOSKELETAL: Extremities without clubbing, cyanosis, or edema. NEUROLOGICAL: Awake, alert, moving bilateral upper and lower extremity spontaneously with no deficit visibly. Shakes his head no to questions. A/P Problem List: (1) HTN (hypertension) ICD Code: I10 - Essential (primary) hypertension (2) Depression ICD Code: F32.9 - Major depressive disorder, single episode, unspecified (3) Atrial flutter ICD Code: I48.92 - Unspecified atrial flutter (4) Major depressive disorder, recurrent, severe w/o psychotic behavior ICD Code: F33.2 - Major depressive disorder, recurrent severe without psychotic features Assessment and Plan Patient is a 77-year-old male with primary medical history of HTN, [place] with stent placement, GERD, a flutter, DVT, depression who came into the hospital as transferred from [facility] secondary to suicidal attempt. He is now admitted to inpatient psychiatry unit for further evaluation. Consulted for assistance with medical management. Unwitnessed fall +orthostatic BP's -Nursing reports patient fell this morning in his room around 6 AM. -CT of the head with no acute intracranial abnormality, chronic findings including mild generalized atrophy and chronic periventricular white matter changes. -Unable to assess for any other injuries, patient refusing physical examination. Moving bilateral upper and lower extremities without difficulties. Patient seen ambulating in the [place] by nursing staff following fall. -EKG showing normal sinus -Consult PT for fall evaluation and further recommendations, check orthostatic blood pressures -Fall precautions - YOSELYN hose to help with BP, check only VS when sitting. Depression Suicidal attempt - Managed by psychiatry team -Patient once again refusing medication Slow Speech Gen Weakness, unsteady gait -PT eval and treat. No PT recommendation in the outpatient setting -Reconsult PT for reevaluation A flutter History of DVT -Continue home Eliquis 2.5 mg twice daily -EKG completed this morning reviewed, heart rate 66 showing normal sinus rhythm with premature ventricular complexes. -Continue verapamil to 80 mg daily. HTN HLD -pravastatin 40 mg daily. -Losartan to 50 mg twice daily, Hydralazine 3 times a day, lisinopril 30 mg daily (parameters to hold for SBP<100 or DBP<60). Placed on hold due to orthostatic BP's -Monitor BP trend and adjust medications according to sitting BP Noncompliance with medications -Has not taken medications today. DVT prop Eliquis Discussed with patient, and nurse. Jo Ann Ashraf February 13, 2018 09:31
--- NOTE | 2018-02-13 10:50 | EKG ---
Date Performed: 02/13/2018 Time Performed: 08:00:34 PTAGE: 78 years EKG: Sinus rhythm WITH OCCASIONAL SUPRAVENTRICULAR PREMATURE COMPLEXES BORDERLINE ECG Since the PREVIOUS TRACING , no significant change noted PREVIOUS TRACIN01/31/2018 15.54 DOCTOR: Da Johnson Interpretating Date/Time 02/13/2018 10:47:55
--- NOTE | 2018-02-13 14:09 | HHI.PYPN ---
Subjective Remarks Patient seen for follow, chart reviewed. Discussion nursing staff reported the patient refuse medications last evening and was found lying on the floor in front of the door to the nurse's station which patient refused to get up and was moved to 2700 unit for further monitoring. Patient also had episode of fall yesterday which CT scan was negative for any acute abnormality. Patient's blood pressure was also noted to be elevated which hospitalist was again consulted for evaluation. Patient was found ambulating on the unit noted B somewhat confused, cooperative. Patient states that his weekend was "off-and-on " having difficulty answering to be somewhat disorganized. Patient reporting having had dysuria for the past 4 days, appetite being "off-and-on" and his mood has been"shty". He agrees to comply with medications, and stated that he would like to be able to go home soon and speak to his daughter. Review of Systems Except as stated in HPI: all other systems reviewed are Neg Mental Status Examination Appearance: Appropriate Consciousness: Alert Orientation: Person, Date/Time (Here only) Speech: Slow Language: Adequate Fund of Knowledge: Inadequate Attention and Concentration: Inadequate Memory: Impaired Mood: Other ("shitty") Affect: Blunt Thought Process & Associations: Disorganized (At times), Other ([place]) Thought Content: Thought blocking (Lessening), Delusional Hallucination Type: None Delusion Type: Paranoid (Did not endorse today) Suicidal Ideation: No Suicidal Plan: No Suicidal Intention: No Homicidal Ideation: No Homicidal Plan: No Homicidal Intention: No Insight: Poor Judgment: Poor Results Vitals/IOs Vital Signs Date Time Temp Pulse Resp B/P (MAP) Pulse Ox O2 Delivery O2 Flow Rate FiO2 02/13/18 12:59 87 79/53 (62) 02/13/18 07:51 97.4 16 96 Assessment & Plan Problem List: (1) Major depressive disorder, recurrent, severe with psychotic features ICD Codes: F33.3 - Major depressive disorder, recurrent, severe with psychotic symptoms Assessment & Plan Patient this time appearing more confused today, we will need to rule out delirium at this time. We will order repeat labs as well as UA due to patient reporting dysuria. We will continue current treatment. Continue monitor mood and behavior. Discharge planning in progress. Justification for Cont. Inpt. At risk for further decompensation if at lower level of care. Discharge Planning Patient return back to his residence when psychiatrically stable. Joshua Roy MD February 13, 2018 14:09
[2018-02-13 14:12] LABS: BACTERIA, URINE RARE /hpf; BILIRUBIN, URINE NEG (NEG); BLOOD, URINE NEG (NEG); GLUCOSE,URINE NEG (NEG); HYALINE CAST, URINE 6 /lpf (RARE); KETONE, URINE 10 mg/dL (NEG); MUCUS URINE FEW /lpf (OCC); NITRITE,URINE NEG (NEG); PH, URINE 5.5 (5.0-8.5); URINE COLOR LIGHT-YELLOW (YELLW/STRAW); URINE LEUKOCYTE ESTERASE NEG (NEG)
[2018-02-13] MEDS ORDERED: HALOPERIDOL LACTATE 5 MG/ML AMP ONE (17:34)
--- NOTE | 2018-02-13 19:05 | RADRPT ---
EXAM DATE/TIME: 02/13/2018 18:45 [facility] COMPARISON: No previous studies available for comparison. INDICATIONS : Trauma. Fall. RADIATION DOSE: 51.06 CTDIvol (mGy) MEDICAL HISTORY : Cardiovascular disease. Hypertension. SURGICAL HISTORY : None. ENCOUNTER: Initial ACUITY: 1 day PAIN SCALE: 0/10 LOCATION: cranial TECHNIQUE: Multiple contiguous axial images were obtained of the head. Using automated exposure control and adj ustment of the mA and/or kV according to patient size, radiation dose was kept as low as reasonably a chievable to obtain optimal diagnostic quality images. DICOM format image data is available electro nically for review and comparison. FINDINGS: CEREBRUM: The ventricles are normal for age. No evidence of midline shift, mass lesion, hemorrhage or acute in farction. No extra-axial fluid collections are seen. POSTERIOR FOSSA: The cerebellum and brainstem are intact. The 4th ventricle is midline. The cerebellopontine angle i s unremarkable. EXTRACRANIAL: The visualized portion of the orbits is intact. SKULL: The calvaria is intact. No evidence of skull fracture. CONCLUSION: Normal examination for a patient of this age. Navi Oliver MD on February 13, 2018 at 19:01 Board Certified Radiologist. This report was verified electronically.
[2018-02-14 06:05] VITALS: BP 165/95; PULSE 62; RESP 16; TEMP 97.6; O2SAT 98
[2018-02-14 07:29] LABS: AUTOMATED NEUTROPHIL # 6.6 TH/MM3 (1.8-7.7); BASOPHIL % 0.5 % (0.0-2.0); EOSINOPHIL # 0.1 TH/MM3 (0-0.4); HEMATOCRIT 45.3 % (39.0-51.0); HEMOGLOBIN 15.7 GM/DL (13.0-17.0); LYMPH % 19.5 % (9.0-44.0); LYMPHOCYTE # 1.9 TH/MM3 (1.0-4.8); MEAN CELL VOLUME 97.8 FL (80.0-100.0); MEAN CORPUSCULAR HEMOGLOBIN 33.9 PG (27.0-34.0); MEAN CORPUSCULAR HGB CONC 34.6 % (32.0-36.0); MONO % 12.6 % (0.0-8.0); MONOCYTE # 1.2 TH/MM3 (0-0.9); NEUT % 66.4 % (16.0-70.0); PLATELET COUNT 155 TH/MM3 (150-450); RED BLOOD COUNT 4.63 MIL/MM3 (4.50-5.90); RED CELL DISTRIBUTION WIDTH 13.2 % (11.6-17.2); WHITE BLOOD COUNT 9.9 TH/MM3 (4.0-11.0)
[2018-02-14 07:47] LABS: BICARBONATE 23.4 MEQ/L (21.0-32.0); CALCIUM 9.6 MG/DL (8.5-10.1); CREATININE 1.29 MG/DL (0.60-1.30)
[2018-02-14] MEDS: FOLIC ACID 1 MG TAB PO SCH (09:19)
[2018-02-14] MEDS: FINASTERIDE 5 MG TAB PO SCH (09:19)
[2018-02-14] MEDS: PRAVASTATIN SOD 40 MG TAB PO SCH (09:19)
[2018-02-14] MEDS: APIXABAN 2.5 MG TABLET PO SCH ×2 (09:19→21:00)
[2018-02-14] MEDS: VENLAFAXINE HCL XR 75 MG CAP PO SCH (09:20)
[2018-02-14] MEDS: FAMOTIDINE 20 MG TAB PO SCH ×2 (09:20→21:00)
[2018-02-14] MEDS: QUEtiapine FUMARATE 25 MG TAB PO SCH ×2 (09:21→21:00)
[2018-02-14] MEDS: VERAPAMIL HCL 80 MG TAB PO SCH (09:21)
--- NOTE | 2018-02-14 10:36 | HHI.PYPN ---
Subjective Remarks Patient seen for follow, chart reviewed. Discussion nursing staff reported the patient now on one-to-one observation after patient yesterday had been endorsing suicide ideations and laying on the floor stating that he would hurt his head which patient was found lying in the hallway and was seen to have hit his head on the floor purposely which patient was taken to CT scan which was negative for any abnormalities. Patient was found lying hospital bed with one- to-one sitter at bedside noted B, cooperative. Patient today appear to be somewhat confused alert and oriented only 2. Patient states he does not recall his recent falls, reports having slept well stating that he wants to go home to be with "my bride" but was unable to elaborate on this, it. Patient agreed to continue current treatment, looking forward to speaking with her daughter later today over the phone. Review of Systems Except as stated in HPI: all other systems reviewed are Neg Mental Status Examination Appearance: Appropriate Consciousness: Alert Orientation: Person, Place Speech: Slow Language: Adequate Fund of Knowledge: Inadequate Attention and Concentration: Inadequate Memory: Impaired Mood: Other ("ok") Affect: Sad, Blunt Thought Process & Associations: Disorganized (At times), Other ([place]) Thought Content: Thought blocking (Lessening), Delusional Hallucination Type: None Delusion Type: Paranoid (Did not endorse today) Suicidal Ideation: No Suicidal Plan: No Suicidal Intention: No Homicidal Ideation: No Homicidal Plan: No Homicidal Intention: No Insight: Poor Judgment: Poor Results Labs Labs reviewed Test 02/13/18 13:35 02/14/18 06:50 Urine Color LIGHT-YELLOW Urine Turbidity CLEAR Urine pH 5.5 Urine Specific [place] 1.007 Urine Protein 30 mg/dL Urine Glucose (UA) NEG mg/dL Urine Ketones 10 mg/dL Urine Occult Blood NEG Urine Nitrite NEG Urine Bilirubin NEG Urine Urobilinogen LESS THAN 2.0 MG/DL Urine Leukocyte Esterase NEG Urine WBC LESS THAN 1 /hpf Urine Bacteria RARE /hpf Urine Hyaline Casts 6 /lpf Urine Mucus FEW /lpf Microscopic Urinalysis Comment CULT NOT INDICATED White Blood Count 9.9 TH/MM3 Red Blood Count 4.63 MIL/MM3 Hemoglobin 15.7 GM/DL Hematocrit 45.3 % Mean Corpuscular Volume 97.8 FL Mean Corpuscular Hemoglobin 33.9 PG Mean Corpuscular Hemoglobin Concent 34.6 % Red Cell Distribution Width 13.2 % Platelet Count 155 TH/MM3 Mean Platelet Volume 9.0 FL Neutrophils (%) (Auto) 66.4 % Lymphocytes (%) (Auto) 19.5 % Monocytes (%) (Auto) 12.6 % Eosinophils (%) (Auto) 1.0 % Basophils (%) (Auto) 0.5 % Neutrophils # (Auto) 6.6 TH/MM3 Lymphocytes # (Auto) 1.9 TH/MM3 Monocytes # (Auto) 1.2 TH/MM3 Eosinophils # (Auto) 0.1 TH/MM3 Basophils # (Auto) 0.0 TH/MM3 CBC Comment DIFF FINAL Differential Comment Hematology Comments Blood Urea Nitrogen 23 MG/DL Creatinine 1.29 MG/DL Random Glucose 82 MG/DL Calcium Level 9.6 MG/DL Sodium Level 140 MEQ/L Potassium Level 4.1 MEQ/L Chloride Level 109 MEQ/L Carbon Dioxide Level 23.4 MEQ/L Anion Gap 8 MEQ/L Estimat Glomerular Filtration Rate 54 ML/MIN Total Creatine Kinase 150 U/L Vitals/IOs Vital Signs Date Time Temp Pulse Resp B/P (MAP) Pulse Ox O2 Delivery O2 Flow Rate FiO2 02/14/18 06:05 97.6 62 16 165/95 (118 98 Assessment & Plan Problem List: (1) Major depressive disorder, recurrent, severe with psychotic features ICD Codes: F33.3 - Major depressive disorder, recurrent, severe with psychotic symptoms Assessment & Plan Patient this time continues to to endorse feeling depressed continues to make suicidal statements and recently having attempted to hurt himself on the unit which patient currently is on one-to-one for safety. Patient reporting having poor recollection of recent events, confused today. It is possible the patient has a degree of neurocognitive deficits which have been observed during this hospitalization. We will complete dementia workup. We will continue current treatment. Will continue monitor mood and behavior. Continue to encourage patient to maintain consistency with adherence to treatment, continue monitor blood pressure is recently elevated due to noncompliance with medications. Discharge planning in progress. Justification for Cont. Inpt. At risk of further decompensation at lower level of care. Discharge Planning Patient return back to residence when psychiatrically stable. Joshua Roy MD February 14, 2018 10:36
--- NOTE | 2018-02-14 12:32 | HHI.PR ---
Subjective Remarks Follow-up visit for HTN, a flutter, DVT, and depression. Patient seen and examined. Patient s/p fall yesterday. Orthostatics BP positive with patients BP dropping to 79/53 with standing. Patient complains of dizziness with sitting and standing. Discussed with patient use of YOSELYN hose and slow transitions. Discussed with nursing staff treating standing BP measurements only. Patient denies any other medical complaints. No headache or vision changes. Denies any fever or chills. Denies any chest pain or SOB. Denies any dysuria, constipation or diarrhea. He is moving his bowels. Discussed with nursing staff. Objective Vitals Vital Signs Date Time Temp Pulse Resp B/P (MAP) Pulse Ox O2 Delivery O2 Flow Rate FiO2 02/14/18 06:05 97.6 62 16 165/95 (118) 98 02/13/18 22:30 97.7 81 125/74 (91) 96 02/13/18 20:30 97.9 82 14 161/87 (111) 97 02/13/18 18:00 97.8 93 16 103/58 (73) 95 02/13/18 12:59 87 79/53 (62) 02/13/18 12:57 86 116/70 (85) 02/13/18 12:55 79 123/65 (84) I/O 02/13/18 02/13/18 02/13/18 02/14/18 02/14/18 02/14/18 06:59 14:59 22:59 06:59 14:59 22:59 Intake Total 480 ml 240 ml Balance 480 ml 240 ml Intake Oral 480 ml 240 ml # Voids 2 Result Diagram: 02/14/18 0650 02/14/18 0650 Imaging Last Impressions Head CT 02/13/18 0000 Signed Impressions: Service Date/Time: Tuesday, February 13, 2018 18:45 - CONCLUSION: Normal examination for a patient of this age. Navi Oliver MD Objective Remarks GENERAL: This is a well-nourished, well-developed elderly male patient , in no apparent distress. Awake and alert. Lying in bed. SKIN: Warm and dry. No generalized rash. HEENT: NC/AT. EOMI. Sclera anicteric. Nose without bleeding. Airway patent. MMM. NECK: Trachea midline. CARDIOVASCULAR: Regular rate without murmurs, gallops, or rubs. RESPIRATORY: Nonlabored. Clear to auscultation. Breath sounds equal bilaterally. No wheezes, rales, or rhonchi. GASTROINTESTINAL: Abdomen soft, non-tender, protuberant. Normoactive bowel sounds. MUSCULOSKELETAL: Extremities without clubbing, cyanosis, or edema. No calf tenderness. NEUROLOGICAL: Awake and alert. Able to move all extremities spontaneously. Grossly nonfocal. Slow but appropriate responses. PSYCHIATRIC: Calm and pleasant. Cooperative with exam. Medications and IVs Current Medications Medications (Trade) Dose Ordered Sig/Idania Route Start Time Stop Time Status Last Admin (Ativan) 0.5 mg Q12H PRN PO 01/31/18 04:00 Future hold (Ativan Inj) 0.5 mg Q12H PRN IM 01/31/18 04:00 Future hold (Tylenol) 650 mg Q4H PRN PO 01/31/18 04:00 (Mag-Al Plus Susp Liq) 30 ml Q6H PRN PO 01/31/18 04:00 (Benadryl) 50 mg HS PRN PO 01/31/18 13:30 02/11/18 21:53 (Eliquis) 2.5 mg BID PO 01/31/18 21:00 02/14/18 09:19 (Pravachol) 40 mg DAILY PO 01/31/18 15:30 02/14/18 09:19 (Proscar) 5 mg DAILY PO 01/31/18 15:30 02/14/18 09:19 (Folate) 1 mg DAILY PO 01/31/18 15:30 02/14/18 09:19 (Milk Of Magnesia Liq) 30 ml Q12H PRN PO 01/31/18 15:30 (Senokot) 17.2 mg Q12H PRN PO 01/31/18 15:30 (Dulcolax Supp) 10 mg DAILY PRN RECTAL 01/31/18 15:30 (Lactulose Liq) 30 ml DAILY PRN PO 02/01/18 09:00 (Pepcid) 20 mg BID PO 01/31/18 21:00 02/14/18 09:20 (Cozaar) 50 mg BID PO 02/01/18 21:00 Future Hold 02/12/18 09:36 (Catapres) 0.1 mg Q6H PRN PO 02/01/18 17:15 (Apresoline) 25 mg Q8HR PO 02/01/18 22:00 Future Hold 02/13/18 05:00 (Effexor Xr) 150 mg DAILY PO 02/04/18 09:00 02/14/18 09:20 (Prinivil) 30 mg DAILY PO 02/05/18 09:00 Future Hold 02/12/18 09:35 (SEROquel) 12.5 mg BID PO 02/09/18 12:00 02/14/18 09:21 (Pill Splitter) 1 ea UNSCH PRN OTHER 02/09/18 12:15 (Isoptin) 80 mg DAILY PO 02/12/18 09:00 02/14/18 09:21 A/P Problem List: (1) HTN (hypertension) ICD Code: I10 - Essential (primary) hypertension (2) Depression ICD Code: F32.9 - Major depressive disorder, single episode, unspecified (3) Atrial flutter ICD Code: I48.92 - Unspecified atrial flutter (4) Major depressive disorder, recurrent, severe w/o psychotic behavior ICD Code: F33.2 - Major depressive disorder, recurrent severe without psychotic features Assessment and Plan Patient is a 77-year-old male with primary medical history of HTN, [place] with stent placement, GERD, a flutter, DVT, depression who came into the hospital as transfer from [facility] secondary to suicidal attempt. He is now admitted to inpatient psychiatry unit for further evaluation. Consulted for assistance with medical management. Unwitnessed fall suspected secondary to orthostatic hypotension +orthostatic BP's. SBP dropped 44mmHg from supine to standing Discussed at length with nursing staff - requested orthostatic BP measurements q shift, YOSELYN hose on before getting out of bed, only treat standing BP measurements Discussed at length with patient - slow transitions, use of YOSELYN hose -continue to hold Lisinopril, Hydralazine and Cozaar -Continue with PT -Fall precautions -YOSELYN hose to help with BP, check only VS when sitting or standing. Only treat standing BP measurements. Depression Suicidal attempt -Managed by psychiatry team A flutter History of DVT -Continue home Eliquis 2.5 mg twice daily -EKG heart rate 66 showing normal sinus rhythm with premature ventricular complexes. -Continue verapamil 80 mg daily. HTN but with orthostatic hypotension s/p fall HLD -continue pravastatin 40 mg daily. -Losartan to 50 mg twice daily, Hydralazine 3 times a day, lisinopril 30 mg daily (parameters to hold for SBP<100 or DBP<60). Placed on hold due to orthostatic BP's -Monitor BP trend and adjust medications according to standing BPs DVT prop Jonathan Discussed with patient, VINICIUS Flores and Rossana Oden February 14, 2018 12:32
[2018-02-15 06:02] VITALS: BP 110/66; PULSE 57; RESP 16; TEMP 97.3; O2SAT 96
[2018-02-15] MEDS: QUEtiapine FUMARATE 25 MG TAB PO SCH ×2 (08:23→21:30)
[2018-02-15] MEDS: FINASTERIDE 5 MG TAB PO SCH (08:28)
[2018-02-15] MEDS: VENLAFAXINE HCL XR 75 MG CAP PO SCH (08:28)
[2018-02-15] MEDS: FAMOTIDINE 20 MG TAB PO SCH ×2 (08:28→21:30)
[2018-02-15] MEDS: FOLIC ACID 1 MG TAB PO SCH (08:28)
[2018-02-15] MEDS: PRAVASTATIN SOD 40 MG TAB PO SCH (08:29)
[2018-02-15] MEDS: APIXABAN 2.5 MG TABLET PO SCH ×2 (08:29→21:30)
[2018-02-15] MEDS: VERAPAMIL HCL 80 MG TAB PO SCH (08:29)
[2018-02-15 09:37] LABS: RPR SCREEN FOR REFLEX NON-REACTIVE (NON-REACTVE)
--- NOTE | 2018-02-15 10:50 | HHI.PR ---
Subjective Remarks Follow-up visit for HTN, a flutter, DVT, and depression. Patient seen and examined. Patient reports he feels better today. He denies any dizziness with sitting or standing today. He is requesting to have therapy. He denies any fever or chills. He denies any chest pain or dyspnea. He denies any N/V or abdominal pain. He denies any swelling in his legs or feet. Discussed with VINICIUS Flores - patient disagreeable yesterday. Would not allow for YOSELYN hose placement or orthostatic BP measurements. She will try again today. BP low this am. Antihypertensives held. Objective Vitals Vital Signs Date Time Temp Pulse Resp B/P (MAP) Pulse Ox O2 Delivery O2 Flow Rate FiO2 02/15/18 06:02 97.3 57 16 110/66 (81) 96 I/O 02/14/18 02/14/18 02/14/18 02/15/18 02/15/18 02/15/18 07:00 15:00 23:00 07:00 15:00 23:00 Intake Total 240 ml 480 ml Balance 240 ml 480 ml Intake Oral 240 ml 480 ml # Voids 2 Result Diagram: 02/14/18 0650 02/14/18 0650 Imaging Last Impressions Head CT 02/13/18 0000 Signed Impressions: Service Date/Time: Tuesday, February 13, 2018 18:45 - CONCLUSION: Normal examination for a patient of this age. Navi Oliver MD Objective Remarks GENERAL: This is a well-nourished, well-developed elderly male patient , in no apparent distress. Awake and alert. Sitting up in bedside chair. Requesting prune juice. SKIN: Warm and dry. No generalized rash. HEENT: NC/AT. EOMI. Sclera anicteric. Nose without bleeding. Airway patent. MMM. NECK: Trachea midline. CARDIOVASCULAR: Regular rate without murmurs, gallops, or rubs. RESPIRATORY: Nonlabored. Clear to auscultation. Breath sounds equal bilaterally. No wheezes, rales, or rhonchi. GASTROINTESTINAL: Abdomen soft, non-tender, protuberant. Normoactive bowel sounds. MUSCULOSKELETAL: Extremities without clubbing, cyanosis, or edema. No calf tenderness. NEUROLOGICAL: Awake and alert. Able to move all extremities spontaneously. Grossly nonfocal. Slow but appropriate responses. PSYCHIATRIC: Calm and pleasant. Cooperative with exam. Medications and IVs Current Medications Medications (Trade) Dose Ordered Sig/Idania Route Start Time Stop Time Status Last Admin (Ativan) 0.5 mg Q12H PRN PO 01/31/18 04:00 Future hold (Ativan Inj) 0.5 mg Q12H PRN IM 01/31/18 04:00 Future hold (Tylenol) 650 mg Q4H PRN PO 01/31/18 04:00 (Mag-Al Plus Susp Liq) 30 ml Q6H PRN PO 01/31/18 04:00 (Benadryl) 50 mg HS PRN PO 01/31/18 13:30 02/11/18 21:53 (Eliquis) 2.5 mg BID PO 01/31/18 21:00 02/15/18 08:29 (Pravachol) 40 mg DAILY PO 01/31/18 15:30 02/15/18 08:29 (Proscar) 5 mg DAILY PO 01/31/18 15:30 02/15/18 08:28 (Folate) 1 mg DAILY PO 01/31/18 15:30 02/15/18 08:28 (Milk Of Magnesia Liq) 30 ml Q12H PRN PO 01/31/18 15:30 (Senokot) 17.2 mg Q12H PRN PO 01/31/18 15:30 (Dulcolax Supp) 10 mg DAILY PRN RECTAL 01/31/18 15:30 (Lactulose Liq) 30 ml DAILY PRN PO 02/01/18 09:00 (Pepcid) 20 mg BID PO 01/31/18 21:00 02/15/18 08:28 (Cozaar) 50 mg BID PO 02/01/18 21:00 Future Hold 02/12/18 09:36 (Catapres) 0.1 mg Q6H PRN PO 02/01/18 17:15 (Apresoline) 25 mg Q8HR PO 02/01/18 22:00 Future Hold 02/13/18 05:00 (Effexor Xr) 150 mg DAILY PO 02/04/18 09:00 02/15/18 08:28 (Prinivil) 30 mg DAILY PO 02/05/18 09:00 Future Hold 02/12/18 09:35 (SEROquel) 12.5 mg BID PO 02/09/18 12:00 02/15/18 08:23 (Pill Splitter) 1 ea UNSCH PRN OTHER 02/09/18 12:15 (Isoptin) 80 mg DAILY PO 02/12/18 09:00 02/14/18 09:21 A/P Problem List: (1) HTN (hypertension) ICD Code: I10 - Essential (primary) hypertension (2) Depression ICD Code: F32.9 - Major depressive disorder, single episode, unspecified (3) Atrial flutter ICD Code: I48.92 - Unspecified atrial flutter (4) Major depressive disorder, recurrent, severe w/o psychotic behavior ICD Code: F33.2 - Major depressive disorder, recurrent severe without psychotic features Assessment and Plan Patient is a 77-year-old male with primary medical history of HTN, [place] with stent placement, GERD, a flutter, DVT, depression who came into the hospital as transfer from [facility] secondary to suicidal attempt. He is now admitted to inpatient psychiatry unit for further evaluation. Consulted for assistance with medical management. Unwitnessed fall suspected secondary to orthostatic hypotension +orthostatic BP's. SBP dropped 44mmHg from supine to standing Discussed at length with nursing staff - requested orthostatic BP measurements q shift, YOSELYN hose on before getting out of bed, only treat standing BP measurements - patient not agreeable yesterday to having BP measurements. D/w nursing staff who will try again today Discussed at length with patient - slow transitions, use of YOSELYN hose -continue to hold Lisinopril, Hydralazine and Cozaar - patient has no complaints of postural dizziness today. -eval by PT, no needs identified at discharge -Fall precautions -YOSELYN hose to help with BP, check only VS when sitting or standing. Only treat standing BP measurements. Depression Suicidal attempt -Management by psychiatry team A flutter History of DVT -Continue home Eliquis 2.5 mg twice daily -EKG heart rate 66 showing normal sinus rhythm with premature ventricular complexes. -Continue verapamil 80 mg daily HTN but with orthostatic hypotension s/p fall HLD -continue pravastatin 40 mg daily. -Losartan to 50 mg twice daily, Hydralazine 3 times a day, lisinopril 30 mg daily (parameters to hold for SBP<100 or DBP<60). Placed on hold due to orthostatic BP's -Monitor BP trend and adjust medications according to standing BPs DVT prop Jonathan Discussed with patient, VINICIUS Flores and Rossana Oden February 15, 2018 10:50
[2018-02-15 12:28] VITALS: BP 125/70
[2018-02-15 12:30] VITALS: BP 130/69
[2018-02-15 12:31] VITALS: BP 172/89
--- NOTE | 2018-02-15 15:06 | PD.TTN ---
Patient Problems 1. Discharge planning 2. Medication compliance 3. Knowledge deficit 4. Lack of coping skills Progress Toward Goals Provider Present: Dr. Mick Roy (02/14/18- Pt. needs to stay for further stabilization.) Provider Input: 02/08/18 pt is worsening and refusing treatment and appearing psychotic 02/06/18 pt has not had a good weekend and stopped medications Med adjustment, griefing loss of his Psychiatric Counselors Present: Jennifer Singh ASSOCIATE ACCOUNT MANAGER (02/14/18- Pt. is cooperative, has no insight, is unstable, and has a place to go for discharge.), Jessika Quevedo, [facility], Olu Andrew Jr., [facility], Radha Valdez, [facility], Bibi Lugo , [facility] Psych Therapist Input: 02/08/18 pt is very depressed and watchful and flat affect and avoiding interaction, keeping to self he is in [place] tomorrow and daugther is coming 02/06/18 pt is withdrawing more 02/01/18: Will go home when stable. Very dependant Group Spec/RT/OT/CASTILLO Present: BULMARO Geronimo, Gee Tariq OT (02/14/18 - Pt. does not attend groups and requires redirection.) Group Spec/RT/OT/CASTILLO Input: 02/08/18 pt has not been attending 02/06/18 leger sbeen seclusive Attemds select groups with Supervision Documentation Scribe: Sam Mejía February 15, 2018 15:06
--- NOTE | 2018-02-15 15:43 | HHI.PYPN ---
Subjective Remarks Patient seen for follow, chart reviewed. Discussion nursing staff reported the patient continues on one-to-one observation, noted to be B, cooperative. Patient noted with less thought blocking today, reports sleeping well, that his mood has been "improved" reports eating and drinking well, denies any suicide ideations today. Patient is alert and oriented 3 today. Patient mentions wanting to speak with his daughter today. Review of Systems Except as stated in HPI: all other systems reviewed are Neg Mental Status Examination Appearance: Appropriate Consciousness: Alert Orientation: Person, Place Speech: Slow Language: Adequate Fund of Knowledge: Inadequate Attention and Concentration: Inadequate Memory: Impaired Mood: Other ("ok") Affect: Blunt Thought Process & Associations: Disorganized (Less so today), Other ([place]) Thought Content: Thought blocking (Lessening), Delusional Hallucination Type: None Delusion Type: Paranoid (Did not endorse today) Suicidal Ideation: No Suicidal Plan: No Suicidal Intention: No Homicidal Ideation: No Homicidal Plan: No Homicidal Intention: No Insight: Poor Judgment: Poor Results Vitals/IOs Vital Signs Date Time Temp Pulse Resp B/P (MAP) Pulse Ox O2 Delivery O2 Flow Rate FiO2 02/15/18 12:31 172/89 (116) 02/15/18 06:02 97.3 57 16 96 Intake and Output 02/15/18 02/15/18 02/16/18 08:00 16:00 00:00 Intake Total 480 ml Balance 480 ml Assessment & Plan Problem List: (1) Major depressive disorder, recurrent, severe with psychotic features ICD Codes: F33.3 - Major depressive disorder, recurrent, severe with psychotic symptoms Assessment & Plan Patient this time with no behavioral disturbances or behaviors which he is noted to put himself on the floor hit his head. Patient noted B engaging, denying having suicide ideations today, more alert and oriented. Patient has been compliant with treatment. Patient requested speak with his daughter. We will have staff assist patient to communicate with his daughter. Continue current treatment. Continue monitor mood behavior. If patient continues with good behavioral control with no behavioral issues we will consider discontinuing one-to-one observations tomorrow. Discharge planning in progress. Justification for Cont. Inpt. At risk of further decompensation at lower level of care. Joshua Roy MD February 15, 2018 15:43
[2018-02-15 18:00] VITALS: BP 167/91; PULSE 68; RESP 16; TEMP 98.8; O2SAT 97
[2018-02-16 06:20] VITALS: BP 150/82; PULSE 58; RESP 16; TEMP 98.2
[2018-02-16] MEDS: VENLAFAXINE HCL XR 75 MG CAP PO SCH (08:36)
[2018-02-16] MEDS: FOLIC ACID 1 MG TAB PO SCH (08:36)
[2018-02-16] MEDS: PRAVASTATIN SOD 40 MG TAB PO SCH (08:36)
[2018-02-16] MEDS: FAMOTIDINE 20 MG TAB PO SCH ×2 (08:36→22:49)
[2018-02-16] MEDS: QUEtiapine FUMARATE 25 MG TAB PO SCH ×2 (08:36→22:49)
[2018-02-16] MEDS: APIXABAN 2.5 MG TABLET PO SCH ×2 (08:36→22:49)
[2018-02-16] MEDS: VERAPAMIL HCL 80 MG TAB PO SCH (08:36)
[2018-02-16] MEDS: FINASTERIDE 5 MG TAB PO SCH (08:36)
--- NOTE | 2018-02-16 17:12 | HHI.PYPN ---
Subjective Remarks Patient seen for follow, chart reviewed. Discussion nursing staff reported the patient noted to be forgetful at times, but has been taking care of hygiene, cooperative, compliant medications and spoke with daughter recently. Patient was found lying on hospital bed noted B, cooperative with one-to-one sitter at bedside. Patient noted be good spirits, noted with less psychomotor retardation and thought blocking, states that he has spoken with his daughter recently states feeling "good" denying feeling depressed or having any further suicidal ideations. Patient states eating and drinking well with no difficulty or bowel movement. Review of Systems Except as stated in HPI: all other systems reviewed are Neg Mental Status Examination Appearance: Appropriate Consciousness: Alert Orientation: Person, Place Speech: Slow Language: Adequate Fund of Knowledge: Inadequate Attention and Concentration: Inadequate Memory: Impaired Mood: Other ("ok") Affect: Blunt Thought Process & Associations: Other ([place]) Thought Content: Thought blocking (Lessening), Delusional (Did not endorse today) Hallucination Type: None Delusion Type: Paranoid (Did not endorse today) Suicidal Ideation: No Suicidal Plan: No Suicidal Intention: No Homicidal Ideation: No Homicidal Plan: No Homicidal Intention: No Insight: Poor Judgment: Poor Results Vitals/IOs Vital Signs Date Time Temp Pulse Resp B/P (MAP) Pulse Ox O2 Delivery O2 Flow Rate FiO2 02/16/18 06:20 98.2 58 16 150/82 (104) 02/15/18 18:00 97 Intake and Output 02/16/18 02/16/18 02/17/18 08:00 16:00 00:00 Intake Total 480 ml 1080 ml Balance 480 ml 1080 ml Assessment & Plan Problem List: (1) Major depressive disorder, recurrent, severe with psychotic features ICD Codes: F33.3 - Major depressive disorder, recurrent, severe with psychotic symptoms Assessment & Plan Patient this time noted with decrease in psychomotor retardation, thought blocking, noted to be more engaging with interview today denying any suicide ideations with improved mood. Patient noted that he confused and forgetful at times with suspicion of degree of neurocognitive deficits and possibly dementia related. Patient recently spoke with daughter, we will contact daughter for collateral and to assess whether she believes patient is back at baseline. Continue current treatment. Continue monitor mood and behavior. Continue one- to-one observation for now with plan to discharge when the once or tomorrow. Discharge planning in progress Justification for Cont. Inpt. At risk for further decompensation if at lower level of care. Discharge Planning Return back to residence Joshua Roy MD February 16, 2018 17:12
[2018-02-16 18:50] VITALS: BP 179/91; PULSE 62; RESP 16; TEMP 97.9; O2SAT 100
[2018-02-16 22:00] VITALS: BP 175/84; PULSE 64; RESP 18; TEMP 97.8; O2SAT 95
[2018-02-17 06:00] VITALS: BP 179/95; PULSE 58; RESP 16; TEMP 97; O2SAT 95
[2018-02-17] MEDS: PRAVASTATIN SOD 40 MG TAB PO SCH (10:41)
[2018-02-17] MEDS: FAMOTIDINE 20 MG TAB PO SCH ×2 (10:42→20:57)
[2018-02-17] MEDS: FINASTERIDE 5 MG TAB PO SCH (10:42)
[2018-02-17] MEDS: FOLIC ACID 1 MG TAB PO SCH (10:42)
[2018-02-17] MEDS: VENLAFAXINE HCL XR 75 MG CAP PO SCH (10:42)
[2018-02-17] MEDS: QUEtiapine FUMARATE 25 MG TAB PO SCH ×2 (10:42→20:57)
[2018-02-17] MEDS: APIXABAN 2.5 MG TABLET PO SCH ×2 (10:42→20:56)
[2018-02-17] MEDS: VERAPAMIL HCL 80 MG TAB PO SCH (10:44)
--- NOTE | 2018-02-17 11:20 | HHI.PYPN ---
Subjective Remarks Patient seen for follow, chart reviewed. Discussion nursing staff reported the patient less evening became oppositional refusing his medications and was given Ativan IM 1 and slept well last evening thereafter. Patient was found lying hospital bed with one-to-one observation sitter at bedside noted B, cooperative. Patient states that he has been feeling "fair to horse-sh*t", stating that his property was lost as he had noticed or read in the newspaper. Patient did not speak with his family yesterday. When asked who had stolen his property he states "band of benefits". Patient stated his mood now has been " up and down" but denied having any suicide ideations at this time. Patient was encouraged to communicate contact his family which he agreed. Review of Systems Except as stated in HPI: all other systems reviewed are Neg Mental Status Examination Appearance: Appropriate Consciousness: Alert Orientation: Person, Place Speech: Slow Language: Adequate Fund of Knowledge: Inadequate Attention and Concentration: Inadequate Memory: Impaired Mood: Other ("Fair to horse-sh*t") Affect: Blunt Thought Process & Associations: Other ([place]) Thought Content: Thought blocking (Lessening), Delusional (Believes this properly was still in) Hallucination Type: None Delusion Type: Paranoid Suicidal Ideation: No Suicidal Plan: No Suicidal Intention: No Homicidal Ideation: No Homicidal Plan: No Homicidal Intention: No Insight: Poor Judgment: Poor Results Vitals/IOs Vital Signs Date Time Temp Pulse Resp B/P (MAP) Pulse Ox O2 Delivery O2 Flow Rate FiO2 02/17/18 06:00 97.0 58 16 179/95 (123) 95 Intake and Output 02/17/18 02/17/18 02/18/18 08:00 16:00 00:00 Intake Total 0 ml Balance 0 ml Assessment & Plan Problem List: (1) Major depressive disorder, recurrent, severe with psychotic features ICD Codes: F33.3 - Major depressive disorder, recurrent, severe with psychotic symptoms Assessment & Plan Patient continues with occasional confusion, likely secondary to neurocognitive deficits but also endorsing some paranoia regards to his property denies. Patient continues to report having some depressed mood but now denying any suicide ideations. We will increase quetiapine to 12.5 a.m./25 mg at bedtime. Continue rest of medications, continue monitor mood and behavior. Patient's blood pressure continues to be persistently elevated, we will reconsult hospitalist for hypertension management. Discharge planning in progress Justification for Cont. Inpt. At risk for further decompensation if at lower level of care. Discharge Planning To be determined. Joshua Roy MD February 17, 2018 11:20
[2018-02-17] MEDS ORDERED: hydrALAZINE HCL 10 MG TAB PO PRN (13:00)
[2018-02-17] MEDS ORDERED: ENALAPRILAT 2.5 MG/2 ML VIAL IV PUSH PRN (13:00)
[2018-02-17] MEDS ORDERED: hydrALAZINE HCL 25 MG TAB PO ONE (13:00)
--- NOTE | 2018-02-17 16:08 | HHI.PR ---
Subjective Remarks Reconsult for hypertension. Patient seen and examined. Patient denies any complaints at present. He would like to know he is going to be discharged. He denies any dizziness, headache or vision changes. Denies any chest pain or shortness of breath. Denies any nausea, vomiting or abdominal pain. Discussed with nursing staff, no acute issues noted. Objective Vitals Vital Signs Date Time Temp Pulse Resp B/P (MAP) Pulse Ox O2 Delivery O2 Flow Rate FiO2 02/17/18 06:00 97.0 58 16 179/95 (123) 95 02/16/18 22:00 97.8 64 18 175/84 (114) 95 02/16/18 18:50 97.9 62 16 179/91 (120) 100 I/O 02/16/18 02/16/18 02/16/18 02/17/18 02/17/18 02/17/18 07:00 15:00 23:00 07:00 15:00 23:00 Intake Total 360 ml 480 ml 1560 ml 0 ml Balance 360 ml 480 ml 1560 ml 0 ml Intake Oral 360 ml 480 ml 1560 ml 0 ml # Voids 0 0 1 # Bowel Movements 1 Result Diagram: 02/14/18 0650 02/14/18 0650 Objective Remarks GENERAL: This is a well-nourished, well-developed elderly male patient , in no apparent distress. Awake and alert. Sitting up in dayroom. Appears comfortable. SKIN: Warm and dry. No generalized rash. HEENT: NC/AT. EOMI. Sclera anicteric. Nose without bleeding. Airway patent. MMM. NECK: Trachea midline. CARDIOVASCULAR: Regular rate without murmurs, gallops, or rubs. RESPIRATORY: Nonlabored. Clear to auscultation. Breath sounds equal bilaterally. No wheezes, rales, or rhonchi. GASTROINTESTINAL: Abdomen soft, non-tender, protuberant. Normoactive bowel sounds. MUSCULOSKELETAL: Extremities without clubbing, cyanosis, or edema. No calf tenderness. NEUROLOGICAL: Awake and alert. Able to move all extremities spontaneously. Grossly nonfocal. Slow but appropriate responses. PSYCHIATRIC: Calm and pleasant. Cooperative with exam. A/P Problem List: (1) HTN (hypertension) ICD Code: I10 - Essential (primary) hypertension (2) Depression ICD Code: F32.9 - Major depressive disorder, single episode, unspecified (3) Atrial flutter ICD Code: I48.92 - Unspecified atrial flutter (4) Major depressive disorder, recurrent, severe w/o psychotic behavior ICD Code: F33.2 - Major depressive disorder, recurrent severe without psychotic features Assessment and Plan Patient is a 77-year-old male with primary medical history of HTN, [place] with stent placement, GERD, a flutter, DVT, depression who came into the hospital as transfer from [facility] secondary to suicidal attempt. He is now admitted to inpatient psychiatry unit for further evaluation. Consulted for assistance with medical management. 02/13 Unwitnessed fall suspected secondary to orthostatic hypotension +orthostatic BP's. SBP dropped 44mmHg from supine to standing Discussed at length with nursing staff - requested orthostatic BP measurements q shift, YOSELYN hose on before getting out of bed, only treat standing BP measurements - patient not agreeable yesterday to having BP measurements. D/w nursing staff who will try again today Discussed at length with patient - slow transitions, use of YOSELYN hose -continue to hold Lisinopril, Hydralazine and Cozaar - patient has no complaints of postural dizziness today. -eval by PT, no needs identified at discharge -Fall precautions -YOSELYN hose to help with BP, check only VS when sitting or standing. Only treat standing BP measurements. 02/17 reconsult for HTN. BP documented at 179/95 this am while supine at 6am. Patient given Hydralazine 25mg x 1 dose at [address] Greenfield's orders. Had RN recheck BP standing at 1600 which was 121/80. Discussed as much with Dr. Greenfield who's orders are as follows: Hydralazine 50mg po BID scheduled Hydralazine 10mg po q6hr prn SBP>160, DBP>90 Vasotec 2.5mg IV push q6hr SBP>160, DBP>90 Depression Suicidal attempt -Management by psychiatry team A flutter History of DVT -Continue home Eliquis 2.5 mg twice daily -EKG heart rate 66 showing normal sinus rhythm with premature ventricular complexes. -Continue verapamil 80 mg daily HTN but with orthostatic hypotension s/p fall HLD -continue pravastatin 40 mg daily. -Losartan to 50 mg twice daily, Hydralazine 3 times a day, lisinopril 30 mg daily (parameters to hold for SBP<100 or DBP<60). Placed on hold due to orthostatic BP's -Monitor BP trend and adjust medications according to standing BPs DVT prop Jonathan Discussed with patient, Zay COLVIN and Rossana Nunez February 17, 2018 16:08
[2018-02-17 17:30] VITALS: BP 121/68; PULSE 70; RESP 16; TEMP 97.6; O2SAT 98
[2018-02-17] MEDS: hydrALAZINE HCL 25 MG TAB PO SCH (20:56)
[2018-02-17] MEDS: diphenhydrAMINE HCL 50 MG CAP PO PRN (20:56)
[2018-02-18 06:00] VITALS: BP 135/68; PULSE 59; RESP 16; TEMP 98; O2SAT 95
[2018-02-18] MEDS: VERAPAMIL HCL 80 MG TAB PO SCH (09:00)
[2018-02-18] MEDS: hydrALAZINE HCL 25 MG TAB PO SCH ×2 (09:00→20:44)
[2018-02-18] MEDS: FINASTERIDE 5 MG TAB PO SCH (09:40)
[2018-02-18] MEDS: QUEtiapine FUMARATE 25 MG TAB PO SCH ×2 (09:40→20:44)
[2018-02-18] MEDS: APIXABAN 2.5 MG TABLET PO SCH ×2 (09:40→20:44)
[2018-02-18] MEDS: FOLIC ACID 1 MG TAB PO SCH (09:40)
[2018-02-18] MEDS: VENLAFAXINE HCL XR 75 MG CAP PO SCH (09:40)
[2018-02-18] MEDS: PRAVASTATIN SOD 40 MG TAB PO SCH (09:41)
[2018-02-18] MEDS: FAMOTIDINE 20 MG TAB PO SCH ×2 (09:42→20:45)
--- NOTE | 2018-02-18 14:02 | HHI.PR ---
Subjective Remarks Reconsult for hypertension. Patient seen and examined. Patient states he is doing well. He denies any complaints of dizziness or lightheadedness with sitting or standing today. Denies any chest pain or shortness of breath. Denies any nausea vomiting or abdominal pain. He is tolerating a diet. Discussed with nursing staff, no new issues noted. Objective Vitals Vital Signs Date Time Temp Pulse Resp B/P (MAP) Pulse Ox O2 Delivery O2 Flow Rate FiO2 02/18/18 06:00 98.0 59 16 135/68 (90) 95 02/17/18 17:30 97.6 70 16 121/68 (85) 98 I/O 02/17/18 02/17/18 02/17/18 02/18/18 02/18/18 02/18/18 07:00 15:00 23:00 07:00 15:00 23:00 Intake Total 0 ml 480 ml 0 ml 480 ml Balance 0 ml 480 ml 0 ml 480 ml Intake Oral 0 ml 480 ml 0 ml 480 ml # Voids 1 2 1 # Bowel Movements 1 Result Diagram: 02/14/18 0650 02/14/18 0650 Objective Remarks GENERAL: This is a well-nourished, well-developed elderly male patient , in no apparent distress. Awake and alert. Sitting on side of bed eating lunch. Appears comfortable. SKIN: Warm and dry. No generalized rash. HEENT: NC/AT. EOMI. Sclera anicteric. Nose without bleeding. Airway patent. MMM. NECK: Trachea midline. CARDIOVASCULAR: Regular rate without murmurs, gallops, or rubs. RESPIRATORY: Nonlabored. Clear to auscultation. Breath sounds equal bilaterally. No wheezes, rales, or rhonchi. GASTROINTESTINAL: Abdomen soft, non-tender, protuberant. Normoactive bowel sounds. MUSCULOSKELETAL: Extremities without clubbing, cyanosis, or edema. No calf tenderness. NEUROLOGICAL: Awake and alert. Able to move all extremities spontaneously. Grossly nonfocal. Slow but appropriate responses. PSYCHIATRIC: Calm and pleasant. Cooperative with exam. A/P Problem List: (1) HTN (hypertension) ICD Code: I10 - Essential (primary) hypertension (2) Depression ICD Code: F32.9 - Major depressive disorder, single episode, unspecified (3) Atrial flutter ICD Code: I48.92 - Unspecified atrial flutter (4) Major depressive disorder, recurrent, severe w/o psychotic behavior ICD Code: F33.2 - Major depressive disorder, recurrent severe without psychotic features Assessment and Plan Patient is a 77-year-old male with primary medical history of HTN, [place] with stent placement, GERD, a flutter, DVT, depression who came into the hospital as transfer from [facility] secondary to suicidal attempt. He is now admitted to inpatient psychiatry unit for further evaluation. Consulted for assistance with medical management. 02/13 Unwitnessed fall suspected secondary to orthostatic hypotension +orthostatic BP's. SBP dropped 44mmHg from supine to standing Discussed at length with nursing staff - requested orthostatic BP measurements q shift, YOSELYN hose on before getting out of bed, only treat standing BP measurements - patient not agreeable yesterday to having BP measurements. D/w nursing staff who will try again today Discussed at length with patient - slow transitions, use of YOSELYN hose -continue to hold Lisinopril, Hydralazine and Cozaar -eval by PT, no needs identified at discharge -Fall precautions -YOSELYN hose to help with BP, check only VS when sitting or standing. Only treat standing BP measurements. 02/17 reconsult for HTN. BP documented at 179/95 this am while supine at 6am. Patient given Hydralazine 25mg x 1 dose at [address] Greenfield's orders. Had RN recheck BP standing at 1600 which was 121/80. Discussed as much with Dr. Greenfield who's orders are as follows: Hydralazine 50mg po BID scheduled Hydralazine 10mg po q6hr prn SBP>160, DBP>90 Vasotec 2.5mg IV push q6hr SBP>160, DBP>90 -Have requested for nursing staff they please obtain a standing BP measurement record in EMR - BP 115/65, patient asymptomatic Depression Suicidal attempt -Management by psychiatry team A flutter History of DVT -Continue home Eliquis 2.5 mg twice daily -EKG heart rate 66 showing normal sinus rhythm with premature ventricular complexes. -Continue verapamil 80 mg daily HTN but with orthostatic hypotension s/p fall HLD -continue pravastatin 40 mg daily. -Currently on verapamil 80 mg daily, hydralazine 50 mg twice daily. Discontinue lisinopril and Cozaar -Monitor BP trend and adjust medications according to standing BPs BPH -continue on Proscar DVT prop Eliquis Discussed with patient, Sandra RN Patient appears stable from hospitalist standpoint. [facility] will sign off. Please reconsult if needed. Rossana Parra February 18, 2018 14:02
--- NOTE | 2018-02-18 15:23 | HHI.PYPN ---
Subjective Remarks Patient was seen and case discussed with nursing. Patient is alert and oriented 1. Behaving well on the unit. Pleasant during the interview. No outbursts or agitation. Patient says he is depressed but denies suicidal or homicidal ideation intent or plan compliant with his medications Mental Status Examination Appearance: Appropriate Consciousness: Alert Orientation: Person, Place Speech: Slow Language: Adequate Fund of Knowledge: Inadequate Attention and Concentration: Inadequate Memory: Impaired Mood: Other ("Fair to horse-sh*t") Affect: Blunt Thought Process & Associations: Other ([place]) Thought Content: Thought blocking (Lessening), Delusional (Believes this properly was still in) Hallucination Type: None Delusion Type: Paranoid Suicidal Ideation: No Suicidal Plan: No Suicidal Intention: No Homicidal Ideation: No Homicidal Plan: No Homicidal Intention: No Insight: Poor Judgment: Poor Results Vitals/IOs Vital Signs Date Time Temp Pulse Resp B/P (MAP) Pulse Ox O2 Delivery O2 Flow Rate FiO2 02/18/18 06:00 98.0 59 16 135/68 (90) 95 Intake and Output 02/18/18 02/18/18 02/19/18 08:00 16:00 00:00 Intake Total 360 ml 120 ml Balance 360 ml 120 ml Assessment & Plan Problem List: (1) Major depressive disorder, recurrent, severe with psychotic features ICD Codes: F33.3 - Major depressive disorder, recurrent, severe with psychotic symptoms Assessment & Plan Continue current treatment plan Justification for Cont. Inpt. Patient would decompensate in a less restrictive setting Hiro Figueroa DO February 18, 2018 15:23
[2018-02-18 16:19] VITALS: BP 115/65; PULSE 71; TEMP 98.7
[2018-02-18 21:00] VITALS: BP 104/63; PULSE 73
[2018-02-19 06:11] VITALS: BP 121/62; PULSE 62; RESP 17; TEMP 98; O2SAT 97
[2018-02-19] MEDS: APIXABAN 2.5 MG TABLET PO SCH ×2 (08:37→20:31)
[2018-02-19] MEDS: FOLIC ACID 1 MG TAB PO SCH (08:37)
[2018-02-19] MEDS: VERAPAMIL HCL 80 MG TAB PO SCH (08:37)
[2018-02-19] MEDS: VENLAFAXINE HCL XR 75 MG CAP PO SCH (08:37)
[2018-02-19] MEDS: hydrALAZINE HCL 25 MG TAB PO SCH ×2 (08:37→20:30)
[2018-02-19] MEDS: FINASTERIDE 5 MG TAB PO SCH (08:37)
[2018-02-19] MEDS: FAMOTIDINE 20 MG TAB PO SCH ×2 (08:37→20:31)
[2018-02-19] MEDS: PRAVASTATIN SOD 40 MG TAB PO SCH (08:37)
[2018-02-19] MEDS: QUEtiapine FUMARATE 25 MG TAB PO SCH ×2 (08:38→20:32)
--- NOTE | 2018-02-19 15:55 | HHI.PYPN ---
Subjective Remarks Patient was seen and case discussed with nursing. Patient is pleasant and cooperative with exam. Yesterday he had an episode where he laid on the floor in the hallway and refused to get up taunting the nurse for an injection. Today , he apologizes for his behavior. Saying he had guilty feelings of his actions. Denies suicidal or homicidal ideation intent or plan Mental Status Examination Appearance: Appropriate Consciousness: Alert Orientation: Person, Place Speech: Slow Language: Adequate Fund of Knowledge: Inadequate Attention and Concentration: Inadequate Memory: Impaired Mood: Other ("Fair to horse-sh*t") Affect: Blunt Thought Process & Associations: Other ([place]) Thought Content: Thought blocking (Lessening), Delusional (Believes this properly was still in) Hallucination Type: None Delusion Type: Paranoid Suicidal Ideation: No Suicidal Plan: No Suicidal Intention: No Homicidal Ideation: No Homicidal Plan: No Homicidal Intention: No Insight: Poor Judgment: Poor Results Vitals/IOs Vital Signs Date Time Temp Pulse Resp B/P (MAP) Pulse Ox O2 Delivery O2 Flow Rate FiO2 02/19/18 06:11 98.0 62 17 121/62 (81) 97 Assessment & Plan Problem List: (1) Major depressive disorder, recurrent, severe with psychotic features ICD Codes: F33.3 - Major depressive disorder, recurrent, severe with psychotic symptoms Assessment & Plan Continue current treatment plan Justification for Cont. Inpt. Patient would decompensate in a less restrictive setting Hiro Figueroa DO February 19, 2018 15:55
[2018-02-19 17:57] VITALS: BP 103/63; PULSE 62; RESP 18; TEMP 97.9; O2SAT 97
[2018-02-20 05:28] VITALS: BP 158/83; PULSE 54; RESP 16; TEMP 97.9; O2SAT 97
[2018-02-20 05:37] VITALS: BP 158/83; PULSE 54; RESP 16; TEMP 97.9; O2SAT 97
[2018-02-20] MEDS: APIXABAN 2.5 MG TABLET PO SCH ×2 (09:02→20:48)
[2018-02-20] MEDS: FOLIC ACID 1 MG TAB PO SCH (09:02)
[2018-02-20] MEDS: VENLAFAXINE HCL XR 75 MG CAP PO SCH (09:02)
[2018-02-20] MEDS: FAMOTIDINE 20 MG TAB PO SCH ×2 (09:02→20:48)
[2018-02-20] MEDS: PRAVASTATIN SOD 40 MG TAB PO SCH (09:02)
[2018-02-20] MEDS: FINASTERIDE 5 MG TAB PO SCH (09:02)
[2018-02-20] MEDS: VERAPAMIL HCL 80 MG TAB PO SCH (09:02)
[2018-02-20] MEDS: hydrALAZINE HCL 25 MG TAB PO SCH ×2 (09:02→20:47)
[2018-02-20] MEDS: QUEtiapine FUMARATE 25 MG TAB PO SCH ×2 (09:03→20:48)
[2018-02-20] MEDS ORDERED: APIX2.5T PO (15:53)
[2018-02-20] MEDS ORDERED: FOLI1TAB6 PO (15:53)
[2018-02-20] MEDS ORDERED: VENL150C39 PO (15:53)
[2018-02-20] MEDS ORDERED: SERO25TA PO ×2 (15:53)
[2018-02-20] MEDS ORDERED: FINA5TAB2 PO (15:53)
[2018-02-20] MEDS ORDERED: HYDR-3800 PO (15:53)
[2018-02-20] MEDS ORDERED: VERA80 PO (15:53)
[2018-02-20] MEDS ORDERED: PRAV40TA PO (15:53)
[2018-02-20] MEDS ORDERED: FAMO20TA2 PO (15:53)
--- NOTE | 2018-02-20 15:54 | HHI.DS ---
Psychiatry Discharge Summary Inpatient Psychiatric care?: Yes Advance Directive: No Reason Not Provided: NA Mental Health AdvanceDirective: No Health Care Proxy: Yes Admission Admission Date Jan 31, 2018 at 01:30 Admission Diagnosis: (1) Major depressive disorder, recurrent, severe w/o psychotic behavior ICD Code: F33.2 - Major depressive disorder, recurrent severe without psychotic features Brief History Patient is a 77-year-old man, recently since 6 months ago, domiciled with daughter, unemployed on Social Security benefits and f[employer] benefits, with a past psychiatric history of depression, anxiety, unclear previous psychiatric admissions, multiple regular tracks, 3 previous suicide attempts, with a past medical history significant for atrial flutter, history of DVT, hypertension, CAD status post stent placement in 1999, who was brought under [employer] act after being found by a nurse trying to place to hang around his neck in attempt to end his life in the context of recent artery with daughter which patient was admitted to the inpatient psychiatry for further evaluation and management. As per [employer] act patient was found by nurse trying to place go ahead around his neck and having stated he wanted to end his life in the context of recent argument with daughter. Patient was found sitting in hospital bed noted, cooperative, alert and oriented only to person and year and not to place. Patient states "I put up" anger around my neck" but is unable to recall events prior to this event but did state he was trying to kill himself. Patient states that he is not having suicide ideations "ever since my " but states that has 3 reasons to live us for his children, his grandchildren for himself. Patient reports no changes sleep but did endorse decreased appetite, concentration, and energy along with feeling depressed but denies any suicide ideations today. Patient denies any perceptual disturbances or delusions. Patient noted with psychomotor retardation during interview and cognitive impairment. The patient is a 77-year-old man, domiciled with his daughter in [place], unemployed, , retired, with no previous psychiatric history, no previous psychiatric hospitalizations, no suicide attempts, medical history hypertension, DVT, CAD, who was brought to the hospital on the [employer] act after being found by a nurse trying to hang himself. Consulted to me for second opinion. On psychiatric evaluation the patient has prominent neurovegetative symptoms of depression, with psychomotor retardation, speech latency, poor sleep and appetite. The patient is fully oriented 3. He says that he tried to kill himself " and just end everything". Patient reports that he has been very depressed, sad, he does not find a reason to live in [facility] with society anymore. Tobacco Use In Past 30 Days: No Tobacco Past 30 Days Alcohol Use: Monthly or Less Hospital Course Patient is a 77-year-old man, recently since 6 months ago, domiciled with daughter, unemployed on Social Security benefits and f[employer] benefits, with a past psychiatric history of depression, anxiety, unclear previous psychiatric admissions, multiple regular tracks, 3 previous suicide attempts, with a past medical history significant for atrial flutter, history of DVT, hypertension, CAD status post stent placement in 1999, who was brought under [employer] act after being found by a nurse trying to place to hang around his neck in attempt to end his life in the context of recent artery with daughter which patient was admitted to the inpatient psychiatry for further evaluation and management. Patient was started on started on venlafaxine and titrated to 150mg p.o. daily for depression, started on quetiapine 12.5mg am/25mg HS for psychotic symtpoms along with continued medication regimen for chronic medical illnesses which patient tolerated well with no adverse drug reactions noted. Patient throughout admission was noted to have had fluctuations in mood which patient on occasion would refuse treatment and perseverate on paranoia that people were taking his money but during admission was noted to have improvement in mood, lessening of depressive symptoms along with cessation of any suicidal ideations or paranoia and delusions. Patient was noted to be cooperative with staff, adherent to treatment, future oriented and with no behavioral disturbances toward end of admission. Upon discharge patient stated feeling good, stated feeling okay with returning back to his home; noted to be calm and cooperative with staff. He agreed to continuing medical recommendations, treatment and cooperate for continuity of care. Patient; denies SI, HI, AVH or delusions. Supportive psychotherapy provided. Suicide and violence risk assessment on day of discharge both suggest lower imminent risk, and the patient 's level of function is adequate for planned level of outpatient care. Patient has maximized benefit from this inpatient psychiatric hospital stay and to return to psychiatric emergency room for any concerning psychiatric symptoms. Patient agrees with plan Results Blood Pressure 158 / 83 Vital Signs Date Time Temp Pulse Resp B/P (MAP) Pulse Ox O2 Delivery O2 Flow Rate FiO2 02/20/18 05:37 97.9 54 16 158/83 (091) 97 WNL Summary of Procedures none Imaging Last Impressions Head CT 02/13/18 0000 Signed Impressions: Service Date/Time: Tuesday, February 13, 2018 18:45 - CONCLUSION: Normal examination for a patient of this age. Navi Oliver MD Pending results at discharge: No Medications # of Antipsychotic meds at D/C: 1 Approp Antipsych med options 1 - Minimum of three failed multiple trials of monotherapy. 2 - Documented plan to taper to monotherapy due to previous use of multiple meds OR cross-taper in progress at D/C. 3 - Documentation of augmentation of Clozapine. 4 - Justification other than those listed in allowable values 1-3, document here : Discharge Discharge Date: February 21, 2018 Discharge Diagnosis: (1) Major depressive disorder, recurrent, severe with psychotic features ICD Code: F33.3 - Major depressive disorder, recurrent, severe with psychotic symptoms Pt Condition on Discharge: Stable Discharge Disposition: Discharge Home Discharge Instructions Diet Instructions: Heart Healthy Diet Activities you can perform: Weight Bearing as Flavia Discharge Time > 30 minutes Mental Status Examination Appearance: Appropriate Consciousness: Alert Orientation: Person, Place Speech: Slow Language: Adequate Fund of Knowledge: Inadequate Attention and Concentration: Adequate Memory: Impaired Mood: Appropriate Affect: Appropriate Thought Process & Associations: Goal directed, Linear Thought Content: Appropriate Hallucination Type: None Delusion Type: None Suicidal Ideation: No Suicidal Plan: No Suicidal Intention: No Homicidal Ideation: No Homicidal Plan: No Homicidal Intention: No Insight: Fair Judgment: Impulsive Discharge/Advance Care Plan Health Problems: (1) Major depressive disorder, recurrent, severe with psychotic features Goals to promote your health * To prevent worsening of your condition and complications * To maintain your health at the optimal level Directions to meet your goals Take your medications as prescribed Follow your dietary instruction Follow activity as directed Keep your appointments as scheduled Take your immunizations and boosters as scheduled If your symptoms worsen call your PCP, if no PCP go to Urgent Care Center or Emergency Room For 02/05 questions related to your inpatient stay or results of tests pending at discharge, please contact Dr. Joshua Roy at Smoking is Dangerous to Your Health. Avoid second hand smoking Joshua Roy MD February 20, 2018 15:54
[2018-02-20 20:50] VITALS: BP 158/87; PULSE 65
[2018-02-21 05:42] VITALS: BP 125/67; PULSE 64; RESP 17; TEMP 97.8
--- NOTE | 2018-02-21 07:38 | HHI.PYPN ---
Subjective Remarks Patient was scheduled for discharge yesterday but was not able to leave due to patient's daughter having left the hospital after having come to pick him up but was not able to access the unit were communicated to staff that she was here to take him home. Patient's daughter was later contacted at he will be provided transportation home. Patient will be discharged today. Patient was seen lying hospital bed noted, cooperative. Patient aware that he is going home today, reports feeling "good", discharge plan reviewed with patient which she acknowledged. Patient denies any SI, HI, AVH or delusions at this time. Mental Status Examination Appearance: Appropriate Consciousness: Alert Orientation: Person, Place Speech: Slow Language: Adequate Fund of Knowledge: Inadequate Attention and Concentration: Inadequate Memory: Impaired Mood: Appropriate Affect: Appropriate Thought Process & Associations: Other ([place]) Thought Content: Appropriate Hallucination Type: None Delusion Type: None Suicidal Ideation: No Suicidal Plan: No Suicidal Intention: No Homicidal Ideation: No Homicidal Plan: No Homicidal Intention: No Insight: Fair Judgment: Impulsive Results Vitals/IOs Vital Signs Date Time Temp Pulse Resp B/P (MAP) Pulse Ox O2 Delivery O2 Flow Rate FiO2 02/21/18 05:42 97.8 64 17 125/67 (86) 02/20/18 05:37 97 Assessment & Plan Problem List: (1) Major depressive disorder, recurrent, severe with psychotic features ICD Codes: F33.3 - Major depressive disorder, recurrent, severe with psychotic symptoms Assessment & Plan Patient was not able to leave yesterday after patient's daughter had, to pick him up but was not able to have access to the unit and therefore left. Patient' s daughter was contacted this morning and made aware the patient will be transported to her home. We will continue with discharge today. Justification for Cont. Inpt. At risk for further decompensation if at lower level of care Discharge Planning Will be discharged home. Joshua Roy MD February 21, 2018 07:38
[2018-02-21] MEDS: VERAPAMIL HCL 80 MG TAB PO SCH (08:07)
[2018-02-21] MEDS: FAMOTIDINE 20 MG TAB PO SCH (08:07)
[2018-02-21] MEDS: FOLIC ACID 1 MG TAB PO SCH (08:07)
[2018-02-21] MEDS: PRAVASTATIN SOD 40 MG TAB PO SCH (08:07)
[2018-02-21] MEDS: APIXABAN 2.5 MG TABLET PO SCH (08:08)
[2018-02-21] MEDS: QUEtiapine FUMARATE 25 MG TAB PO SCH (08:08)
[2018-02-21] MEDS: VENLAFAXINE HCL XR 75 MG CAP PO SCH (08:08)
[2018-02-21] MEDS: FINASTERIDE 5 MG TAB PO SCH (08:08)
[2018-02-21] MEDS: hydrALAZINE HCL 25 MG TAB PO SCH (08:08)
== END 2018-02-21 09:55 | disposition home or self-care (01) | DRG 885 ==
LOC: H250 01-31 01:30 → H260 02-01 12:59 → H250 02-02 14:00 → H260 02-10 12:00 → H270 02-13 09:50 → H4EA 02-13 15:05
PROVIDERS: ADMIT Student in an Organized Health Care Education/Training Program; ATTEND Student in an Organized Health Care Education/Training Program
DX: F33.3 Major depressive disorder, recurrent, severe with psychotic symptoms (principal); F03.90 Unspecified dementia, unspecified severity, without behavioral disturbance, psychotic disturbance, mood disturbance, and anxiety; R45.851 Suicidal ideations; I48.92 Unspecified atrial flutter; Z91.5 Personal history of self-harm; I25.10 Atherosclerotic heart disease of native coronary artery without angina pectoris; I10 Essential (primary) hypertension; F41.9 Anxiety disorder, unspecified; R63.0 Anorexia; I25.2 Old myocardial infarction; Z81.8 Family history of other mental and behavioral disorders; K21.9 Gastro-esophageal reflux disease without esophagitis; Z82.49 Family history of ischemic heart disease and other diseases of the circulatory system; Z82.0 Family history of epilepsy and other diseases of the nervous system; K59.00 Constipation, unspecified; Z87.891 Personal history of nicotine dependence; Z79.01 Long term (current) use of anticoagulants; E78.5 Hyperlipidemia, unspecified; Z79.899 Other long term (current) drug therapy; I49.3 Ventricular premature depolarization; I95.1 Orthostatic hypotension; W19.XXXA Unspecified fall, initial encounter; Z91.14 Patient's other noncompliance with medication regimen; Z86.718 Personal history of other venous thrombosis and embolism; Z95.5 Presence of coronary angioplasty implant and graft; N40.0 Benign prostatic hyperplasia without lower urinary tract symptoms; R00.1 Bradycardia, unspecified; Z91.19 Patient's noncompliance with other medical treatment and regimen; W18.30XA Fall on same level, unspecified, initial encounter; Y93.89 Activity, other specified; Y92.238 Other place in hospital as the place of occurrence of the external cause
CPT/HCPCS: 70450; 80048; 80053; 81001; 82306; 82550; 82607; 82746; 84443; 85025; 86592; 93005; J1630; J2060; Q0163